=== PATIENT | female | born 1980 | race Caucasian/White ===

== ENCOUNTER 2018-06-25 02:21 | Emergency (ER) | payer MEDICAID, SELFPAY ==
[2018-06-25] VITALS (10 sets, daily range): BP systolic 97–128; BP diastolic 52–73; PULSE 68–110; RESP 11–18; TEMP 37; O2SAT 97–100; BMI 20.6
[2018-06-25] MEDS: LORazepam 2 MG/ML Syringe IM (02:50)
[2018-06-25] MEDS: Haloperidol Lactate 5 MG/ML Vial IM (02:50)
--- NOTE | 2018-06-25 03:02 | ED.RN ---
Addendum entered by Anastasiya Daniels 06/25/18 03:13: THIS PT WAS ALSO TRYING TO BREAK HER OWN WRIST AND THUMB STATING THAT SHE NEEDED TO GET THE BLACK THINGS OUT OF HER. SHE WAS ALSO CONTINUOUSLY PICKING AT HER NECK AND HER SKIN TRYING TO RIP OUT THE BAD THINGS. THIS NURSE AND MULTIPLE NURSES TRIED TO REDIRECT THE PT MULTIPLE TIMES AND LET HER KNOW WE WOULD HELP HER BUT SHE REFUSED TO LET THE NURSES DO ANYTHING TO TRY TO HELP HER. Original Note: THIS PATIENT WAS STATING THAT SHE HAS THINGS CRAWLING IN HER SKIN AND THEY ARE HURTING HER AND SHE WAS ACTING ERRATIC AND STATES SHE WANTED ANXIETY MEDS, DR GOINS EXAMINED THE PATIENT AND ORDERED HER ANXIETY MEDS, WHILE THIS NURSE WAS DRAWLING UP THE MEDS, THIS PT TOOK OFF OUT THE BACK DOORS OF THE ER, WHEN SECURITY WAS TOLD SECURITY WALKED THE OTHER WAY WHILE THE PT RAN OUT OF THE ER, THE PHARM SPEC WERE THEN CALLED AND THEY BROUGHT THIS PT BACK. THIS PATIENT WAS STILL TRYING TO LEAVE AND SO DR GOINS ORDERED RESTRAINTS BECAUSE THE PATIENT WAS STATING SHE WAS GOING TO HURT THE STAFF AND KEPT TRYING TO LEAVE SO AT THIS POINT THE PT WAS RESTRAINED AND GIVEN ATIVAN AND HALIDOL TO HELP HER CALM DOWN. THE PT IS RAMBLING ON AND STILL YELLING AT STAFF AND THREATENING THEM.
[2018-06-25 04:01] LABS: Bacteria 0 SEEN /hpf (None Seen); Mucous, Urine 0 SEEN /hpf (<or=2+)
[2018-06-25 04:02] LABS: Absolute Neutrophil Count 3.8 X10^3/uL (2.0-7.7); Basophil# 0.07 X10^3/uL; Basophil% 1.1 % (0-1); Eosinophil# 0.17 X10^3/uL; Eosinophils% 2.7 % (0-5); Hematocrit 32.8 % (37-47); Mean Corp Hgb Conc 33.5 g/gl (32-36); Mean Corpuscular Hgb 27.4 pg (27.0-32.0); Mean Corpuscular Volume 81.8 fL (81-99); Mean Platelet Vol. 9.8 fl (6.2-12.0); Monocyte# 0.36 X10^3/uL; Monocyte% 5.8 % (0-10); Neutrophil # 3.79 X10^3/uL (2.7-7.7); Neutrophil % 61.2 % (47-70); Platelet Count 348 K/mm3 (150-450); RBC Distribution Width SD 40.9 fl (35.1-43.9); Red Blood Count 4.01 M/mm3 (4.2-5.4); White Blood Count 6.2 K/mm3 (4.4-11.0)
[2018-06-25 04:12] LABS: ALB/GLOB Ratio 1.2 RATIO (0.9-2.4); AST(SGOT) 71 U/L (15-37); Alanine Aminotransfer ALT/SGPT 75 U/L (13-56); Albumin, Serum 3.9 g/dL (3.2-5.0); Alkaline Phosphatase 121 U/L (45-117); Anion Gap 12 (5-15); BUN 12 mg/dL (7-18); BUN/Creat Ratio 16.7 RATIO (10-20); Calcium,Total 8.5 mg/dL (8.5-10.1); Chloride 103 mmol/L (98-107); Creatinine, Serum 0.72 mg/dL (0.55-1.02); EST Glomerular Filtration Rate 97 mL/min (>60); Est Glom Filt Rate - Afr Amer 117 mL/min (>60); Globulin 3.2 g/dL (2.2-4.2); Glucose 86 mg/dL (74-106); Potassium 2.9 mmol/L (3.5-5.1); Protein, Total 7.1 g/dL (6.4-8.2); Sodium Level 140 mmol/L (136-145)
[2018-06-25 04:50] LABS: Alcohol, Blood (Medical)-Serum < 3.0 mg/dL
[2018-06-25 04:52] LABS: POSITIVE COUNT NO; POSITIVE DIFFERENTIAL NO; POSITIVE MORPHOLOGY NO
[2018-06-25 04:57] LABS: Color, Urine Yellow (Yellow); Ketone-Dipstick 5 mg/dl (Negative); Urine Clarity Sl Cldy (Clear)
[2018-06-25 04:58] LABS: Glucose, Dipstick NEGATIVE (Normal); Nitrite-Dipstick Negative (Negative); Occult Blood-Urine 10 /ul (Negative); Protein-Dipstick Negative (Negative); Urine Bilirubin Dipstick Negative (Negative); Urine Urobilinogen Normal (Normal)
[2018-06-25 04:59] LABS: Leukocyte Esterase-Dipstick Negative /ul (Negative); Red Blood Cells-Urine 0-5 SEEN /hpf (0-5); Squamous Epithelial Cells - UA 0-5 SEEN /hpf (5-10); White Blood Cells 0-5 SEEN /hpf (0-5)
[2018-06-25 05:06] LABS: Amphetamine Urine VISTA POSITIVE (<1000 ng/mL); Barbiturate Urine VISTA NEGATIVE (< 200 ng/mL); Benzodiazepine Urine VISTA NEGATIVE (< 200 ng/mL); Cocaine Urine VISTA NEGATIVE (< 300 ng/mL); Ecstacy Urine VISTA POSITIVE (< 500 ng/mL); Methadone Urine VISTA NEGATIVE (< 300 ng/mL); PCP Urine VISTA NEGATIVE (< 25 ng/mL); THC Urine VISTA NEGATIVE (< 50 ng/mL); Vista UDS pH Range 6
--- NOTE | 2018-06-25 05:43 | NURSING ---
CALLED CRISIS TO INFORM THEM PATIENT WAS READY TO BE SEEN
--- NOTE | 2018-06-25 06:04 | ED.VISSUMM ---
- ER Visit Summary Date of Service: 06/25/18 Chief Complaint: [Agitation and abnormal behavior] History of Present Illness: The patient is a 38 F [presents to the emergency department with police escort from home. Neighbors apparently called police to the fact that the patient was yelling out of her window. Police thought patient was having a manic episode. Patient apparently has been without her psychiatric medications. Patient was noted to have conversations with people that were not actually there per police. Patient also believes that the neighbors are shooting darts through her woods that are causing her skin to burn. Patient denies feeling suicidal or homicidal. Patient denied any illicit drug use. She denies any physical complaints.] Physical Examination: [HEENT-PERRLA, EOMI. Cranial nerves II through XII grossly intact. TMs clear. Mucous membranes moist. No adenopathy. Patient has excoriations about her forehead and face. Cardiovascular-regular rate and rhythm without murmur or ectopy Lungs-clear to auscultation, chest wall stable without crepitus or subcu emphysema Abdomen-normoactive bowel sounds, soft, nontender, no rebound or rigidity, no peritoneal signs. Extremities-intact ?4, normal range of motion, normal pulses, atraumatic] Test Results: [CBC with differential obtained showed a white count of 6.2, hemoglobin 11, hematocrit 33, platelets 348. Chemistries unremarkable other than a slightly depressed potassium of 2.9 for which I did order 40 mEq of potassium chloride p.o. LFTs did show slightly elevated ALT of 75, AST 71, and alkaline phosphatase of 121. Toxicology screen was positive for amphetamines and methamphetamines. Patient had a negative alcohol level.] Emergency Department Course and Treatment: [On initial presentation after police left patient became quite agitated that I could not see the black darts that were in her skin. Patient threatened to leave the department and did push me out of the way and walked out of the department. Police was contacted who found the patient and brought her back to the emergency department. Patient had to be physically restrained as she was quite agitated and belligerent. Patient post threat and risk to herself as well as staff. Patient initially physically restrained in four-point and was chemically restrained with 2 mg of Ativan as well as 5 mg of Haldol.] Treatment Plan: [Patient will be evaluated by crisis I feel patient will likely require inpatient management and further treatment.] Disposition: [Pending event which by crisis] Impression: [Psychosis Illicit drug use] This note was generated with [employer] dictation software. It may contain incorrect words, spelling, and punctuation that were not noted in review of the chart prior to signing ED Disposition - Plan for ED Patient: Chief Complaint: Mental Health Referrals: Reji Sood DO [Primary Care Provider] -
--- NOTE | 2018-06-25 07:17 | ED.RN ---
PT UNABLE TO VERIFY INFORMATION OR MEDS OR ALLERGIES. ATTEMPTED AGAIN THIS AM. PT WILL NOT COMMENT
[2018-06-25 07:36] LABS: Pregnancy, Serum, hCG Quali. NEGATIVE Negative (0-9 Nonpreg)
--- NOTE | 2018-06-25 07:51 | ED.RN ---
ALL RESTRAINTS REMOVED AT THIS TIME. PT RESPONSIVE. ASKS FOR BLANKET. WARM BLANKET PROVIDED.. STILL UNABLE TO GIVE POTASSIUM PT NOT AWAKE ENOUGH
--- NOTE | 2018-06-25 09:07 | ED.RN ---
[facility]
--- NOTE | 2018-06-25 09:24 | ED.RN ---
JOSE ALEJANDRO CALLED AND IS STOPPING OVER BUT HAS TO GO TO THE [facility] FIRST TO SEE A PATIENT.
--- NOTE | 2018-06-25 10:17 | ED.RN ---
PT AQWAKE ENOUGH TO TAKE POTASSIUM. PILLS GIVEN WITHOUT DIFFICULTY. OFFERRED PT FOOD AND DRINK. PT REFUSED BUT DID DRINK WATER WITH PILLS. PT POLITE AND COOPERATIVE WITH THIS RN
--- NOTE | 2018-06-25 12:17 | NURSING ---
Ju from crisis in to see patient. Pt informed her she was confused and needed to sleep longer. Ju will return around 220 today to re-evaluate.
== END 2018-06-25 17:45 ==
LOC: ED 03:46
PROVIDERS: Emergency Provider Emergency Medicine; Family Provider Family Medicine; PCP Family Medicine
DX: F29 Unspecified psychosis not due to a substance or known physiological condition (principal); F19.10 Other psychoactive substance abuse, uncomplicated
CPT/HCPCS: 80053; 80307; 80320; 81001; 84703; 85025; 96372; 99285; G0480

== ENCOUNTER 2018-07-05 01:23 | Emergency (ER) | payer MEDICAID, SELFPAY ==
[2018-06-25 02:22] VITALS: BMI 20.6
[2018-07-05 01:24] VITALS: BP 129/91; PULSE 114; RESP 22; TEMP 36.4; O2SAT 100; BMI 18.1
[2018-07-05 01:52] LABS: Absolute Lymphocyte Count 2.12 X10^3/ul (0.83-4.51); Absolute Neutrophil Count 4.3 X10^3/uL (2.0-7.7); Basophil# 0.05 X10^3/uL; Basophil% 0.7 % (0-1); Eosinophil# 0.16 X10^3/uL; Eosinophils% 2.2 % (0-5); Hematocrit 31.6 % (37-47); Hemoglobin 10.4 g/dl (12.0-15.0); Lymphocyte # 2.12 X10^3/ul (4.0); Lymphocyte % 29.7 % (19-41); Mean Corp Hgb Conc 32.9 g/gl (32-36); Mean Corpuscular Hgb 26.5 pg (27.0-32.0); Mean Corpuscular Volume 80.6 fL (81-99); Mean Platelet Vol. 8.8 fl (6.2-12.0); Monocyte# 0.53 X10^3/uL; Monocyte% 7.4 % (0-10); Neutrophil # 4.27 X10^3/uL (2.7-7.7); POSITIVE COUNT NO; POSITIVE DIFFERENTIAL NO; POSITIVE MORPHOLOGY NO; Platelet Count 397 K/mm3 (150-450); RBC Distribution Width SD 43.9 fl (35.1-43.9); Red Blood Count 3.92 M/mm3 (4.2-5.4); White Blood Count 7.1 K/mm3 (4.4-11.0)
--- NOTE | 2018-07-05 02:04 | ED.DCSUM_ITS ---
History of Present Illness Chief Complaint: Mental Health Informant: Patient, [employer] - and police Onset: Today Narrative: Please were responding to calling about the patient sounded like she was fighting with herself in her home. When they arrived, she apparently had barricaded herself with the furniture of the house, she states that there are spots on the wall and things are coming out of the carpet and she appears very nervous and paranoid and they documented that she appeared to have fake seizures without loss of consciousness, she states she was recently at [facility] and was placed on omeprazole for her seizures. She states she has not been d rinking fluids and feels dehydrated and very anxious, and she has an anxiety problem. She is not suicidal, she is very apologetic for what her throat appears like, and tearful as she tells us that it is her neighbors fault. - Past Medical History (1) ADHD (attention deficit hyperactivity disorder) Status: Chronic (2) Agoraphobia without history of panic disorder Status: Chronic (3) Asthma Status: Chronic (4) Chronic recurrent pancreatitis Status: Chronic (5) History of alcohol dependence Status: Chronic (6) History of anxiety disorder Status: Chronic (7) History of insomnia Status: Chronic (8) Opioid dependence in remission Status: Chronic Past Medical History - Allergies and Home Meds Allergies/Adverse Reactions: Allergies latex Allergy (Verified 07/05/18 02:04) Rash morphine Allergy (Verified 07/05/18 02:04) Rash Sulfa (Sulfonamide Antibiotics) Allergy (Verified 07/05/18 02:04) Swelling Primary Care Physician: Reji Sood DO [Primary Care Provider] - Surgical History: noncontributory, - - 2 c sections Smoking Status: Unknown if ever smoked - Family History Paternal Family History: Reports: No pertinent history Maternal Family History: Reports: No pertinent history Review of Systems General: Denies: Chills, Fever, Sweats Eyes: Denies: Visual changes - bilaterally, Diplopia ENT: Denies: Sore throat Cardiovascular: Denies: Chest pain, Palpitations Respiratory: Denies: Dyspnea, Cough, Dyspnea on exertion Gastrointestinal: Reports: Nausea. Denies: Abdominal pain, Vomiting, Diarrhea, Melena, Hematochezia Genitourinary: Denies: Dysuria, Hematuria, Frequency Musculoskeletal: Denies: Back pain, Swelling, Extremity Pain Skin: Reports: Rash - That is red on forearms, burning, itching Neurological: Denies: Headache, Weakness, Numbness Psych: Reports: Anxiety. Denies: Suicidal thoughts, Suicidal ideations Endocrine: Denies: Heat intolerance, Cold intolerance Hematologic: Denies: Easy bruising, Easy bleeding Allergy: Denies: Swelling of the mouth, Swelling of the tongue Physical Exam Vital Signs/Narrative: Vital Signs Temp Pulse Resp BP Pulse Ox 07/05/18 01:24 97.5 F L 114 H 22 H 129/91 H 100 Inital Vital Signs reviewed: Yes General: Well nourished, Well developed Head: Normocephalic, Atraumatic Eyes: Perrl, EOMI ENT: Moist mucous membranes, No rhinorrhea Neck: Supple, Nontender Cardiovascular: Regular rate, Regular rhythm, No murmurs Respiratory: No distress, CTA bilaterally, Chest nontender Abdomen: Soft, Nontender, Nondistended, Normal bowel sounds Back: Nontender, Normal Inspection Extremities: Nontender, No edema Skin: Normal color, Rash - Blanching nontender erythema with excoriations on both forearms, proximal edges are not well differentiated, consistent with contact dermatitis Neurological: Alert, Oriented x3, Cranial nerves II-XII grossly intact, Normal Strength, Normal Sensation Psychological: Tearful, Agitated - Mild psychomotor agitation, cooperative, staying in bed, - - Not having active hallucinations, but discussing that she was seeing things coming out of her carpet at her house. Anxious appearing. Diagnostic/Tx/Re-eval Laboratory Tests 07/05/18 07/05/18 07/05/18 Range/Units 02:47 02:47 01:45 WBC (4.4-11.0) K/mm3 RBC (4.2-5.4) M/mm3 Hgb (12.0-15.0) g/dl Hct (37-47) % MCV (81-99) fL MCH (27.0-32.0) pg MCHC (32-36) g/gl RDW (11.6-14.6) % RDW Differential (35.1-43.9) fl Plt Count (150-450) K/mm3 MPV (6.2-12.0) fl Immature Gran % (Auto) (0.0-0.9) % Neut % (Auto) (47-70) % Lymph % (Auto) (19-41) % [place] % (Auto) (0-10) % Eos % (Auto) (0-5) % Baso % (Auto) (0-1) % Absolute Neuts (auto) (2.0-7.7) X10^3/uL Absolute Lymphs (auto) (0.83-4.51) X10^3/ul Total Counted Sodium (136-145) mmol/L Potassium (3.5-5.1) mmol/L Chloride (98-107) mmol/L Carbon Dioxide (21.0-32.0) mmol/L Anion Gap (5-15) BUN (7-18) mg/dL Creatinine (0.55-1.02) mg/dL Estim Creat Clear Calc ml/min Est GFR (MDRD) Af Amer (>60) mL/min Est GFR (MDRD) Non-Af (>60) mL/min BUN/Creatinine Ratio (10-20) RATIO Glucose (74-106) mg/dL Calcium (8.5-10.1) mg/dL Total Bilirubin (0.20-1.00) mg/dL AST (15-37) U/L ALT (13-56) U/L Alkaline Phosphatase (45-117) U/L Total Protein (6.4-8.2) g/dL Albumin (3.2-5.0) g/dL Globulin (2.2-4.2) g/dL Albumin/Globulin Ratio (0.9-2.4) RATIO TSH (0.358-3.74) uIU/mL Serum , Qual NEGATIVE (0-9 Nonpreg) Negative Urine Color Yellow (Yellow) Urine Clarity Sl. Cloudy (Clear) Urine pH 5.0 (5.0 - 8.0) Ur Specific [place] 1.025 (1.002-1.030) Urine Protein 30 H (Negative) mg/dl Urine Glucose (UA) Normal (Normal) mg/dl Urine Ketones 15 H (Negative) mg/dl Urine Occult Blood Negative (Negative) /ul Urine Nitrite Negative (Negative) Urine Bilirubin Negative (Negative) mg/dL Urine Urobilinogen Normal (Normal) mg/dl Ur Leukocyte Esterase 500 H (Negative) /ul Urine RBC 0 SEEN (0-5) /hpf Urine WBC 10-25 SEEN (0-5) /hpf Ur Squamous Epith Cells 5-10 SEEN (5-10) /hpf Amorphous Sediment 1+ Urine Bacteria 0 SEEN (None Seen) /hpf Urine Mucus 0 SEEN (<or=2+) /hpf Urine Opiates Screen NEGATIVE (< 300 ng/mL) Urine Methadone Screen NEGATIVE (< 300 ng/mL) Ur Barbiturates Screen NEGATIVE (< 200 ng/mL) Ur Phencyclidine Scrn NEGATIVE (< 25 ng/mL) Ur Amphetamines Screen POSITIVE H (<1000 ng/mL) U Methamphetamin-MDMA POSITIVE H (< 500 ng/mL) U Benzodiazepines Scrn NEGATIVE (< 200 ng/mL) Urine Cocaine Screen NEGATIVE (< 300 ng/mL) U Cannabinoids Screen NEGATIVE (< 50 ng/mL) Ur Drug Screen Comment Ethyl Alcohol mg/dL 07/05/18 07/05/18 07/05/18 Range/Units 01:45 01:45 01:45 WBC 7.1 (4.4-11.0) K/mm3 RBC 3.92 L (4.2-5.4) M/mm3 Hgb 10.4 L (12.0-15.0) g/dl Hct 31.6 L (37-47) % MCV 80.6 L (81-99) fL MCH 26.5 L (27.0-32.0) pg MCHC 32.9 (32-36) g/gl RDW 15.0 H (11.6-14.6) % RDW Differential 43.9 (35.1-43.9) fl Plt Count 397 (150-450) K/mm3 MPV 8.8 (6.2-12.0) fl Immature Gran % (Auto) 0.000 (0.0-0.9) % Neut % (Auto) 60.0 (47-70) % Lymph % (Auto) 29.7 (19-41) % [place] % (Auto) 7.4 (0-10) % Eos % (Auto) 2.2 (0-5) % Baso % (Auto) 0.7 (0-1) % Absolute Neuts (auto) 4.3 (2.0-7.7) X10^3/uL Absolute Lymphs (auto) 2.12 (0.83-4.51) X10^3/ul Total Counted Not Reportable Sodium 137 (136-145) mmol/L Potassium 3.2 L (3.5-5.1) mmol/L Chloride 104 (98-107) mmol/L Carbon Dioxide 21.0 (21.0-32.0) mmol/L Anion Gap 12 (5-15) BUN 22 H (7-18) mg/dL Creatinine 0.70 (0.55-1.02) mg/dL Estim Creat Clear Calc 82.74 ml/min Est GFR (MDRD) Af Amer 120 (>60) mL/min Est GFR (MDRD) Non-Af 99 (>60) mL/min BUN/Creatinine Ratio 31.4 H (10-20) RATIO Glucose 149 H (74-106) mg/dL Calcium 8.4 L (8.5-10.1) mg/dL Total Bilirubin 1.20 H (0.20-1.00) mg/dL AST 95 H (15-37) U/L ALT 90 H (13-56) U/L Alkaline Phosphatase 167 H (45-117) U/L Total Protein 7.3 (6.4-8.2) g/dL Albumin 4.2 (3.2-5.0) g/dL Globulin 3.1 (2.2-4.2) g/dL Albumin/Globulin Ratio 1.4 (0.9-2.4) RATIO TSH 1.67 (0.358-3.74) uIU/mL Serum , Qual (0-9 Nonpreg) Negative Urine Color (Yellow) Urine Clarity (Clear) Urine pH (5.0 - 8.0) Ur Specific [place] (1.002-1.030) Urine Protein (Negative) mg/dl Urine Glucose (UA) (Normal) mg/dl Urine Ketones (Negative) mg/dl Urine Occult Blood (Negative) /ul Urine Nitrite (Negative) Urine Bilirubin (Negative) mg/dL Urine Urobilinogen (Normal) mg/dl Ur Leukocyte Esterase (Negative) /ul Urine RBC (0-5) /hpf Urine WBC (0-5) /hpf Ur Squamous Epith Cells (5-10) /hpf Amorphous Sediment Urine Bacteria (None Seen) /hpf Urine Mucus (<or=2+) /hpf Urine Opiates Screen (< 300 ng/mL) Urine Methadone Screen (< 300 ng/mL) Ur Barbiturates Screen (< 200 ng/mL) Ur Phencyclidine Scrn (< 25 ng/mL) Ur Amphetamines Screen (<1000 ng/mL) U Methamphetamin-MDMA (< 500 ng/mL) U Benzodiazepines Scrn (< 200 ng/mL) Urine Cocaine Screen (< 300 ng/mL) U Cannabinoids Screen (< 50 ng/mL) Ur Drug Screen Comment Ethyl Alcohol < 3.0 mg/dL - Medical Decision Making Labs show mild hypokalemia and a urinary tract infection. Otherwise unremarkable. Began treatment for these problems starting her on Keflex, which should be continued at 500 mg capsule 3-4 times daily x 7 days. We sent a culture of her urine. Otherwise she is medically cleared for psychiatric evaluation. Crisis evaluated her and agrees that she should be transferred to a psychiatric facility for further evaluation. I attempted to tell her that she was pink slipped, but she became more agitated and would not allow me to converse with her anymore, she was asking for her medicines which she has not had lately and when I suggested that she was not taking them, she was very adamant that she could not get to them, not that she refuses. She was given her oral medications which she took, in addition to an Ativan because she said she was getting very anxious and did not want to have an EKG, repeat vital signs, or to have me talk to her anymore. She blames it on her lack of sleep. Her th oughts are illogical at times and incoherent. ED Disposition - Plan for ED Patient: Disposition: Acute Care Hospital - Other Chief Complaint: Mental Health Diagnosis: Psychosis, Contact dermatitis, UTI (urinary tract infection) Referrals: Reji Sood DO [Primary Care Provider] -
--- NOTE | 2018-07-05 02:08 | ED.RN ---
PER DR EVIE STUART SITTER AT THIS TIME
[2018-07-05] MEDS: hydrOXYzine PAM 25 MG Capsule PO (02:13)
[2018-07-05] MEDS: proMETHazine 25 MG Tablet PO (02:13)
[2018-07-05 02:17] LABS: ALB/GLOB Ratio 1.4 RATIO (0.9-2.4); AST(SGOT) 95 U/L (15-37); Alanine Aminotransfer ALT/SGPT 90 U/L (13-56); Albumin, Serum 4.2 g/dL (3.2-5.0); Alkaline Phosphatase 167 U/L (45-117); Anion Gap 12 (5-15); BUN 22 mg/dL (7-18); BUN/Creat Ratio 31.4 RATIO (10-20); Calcium,Total 8.4 mg/dL (8.5-10.1); Chloride 104 mmol/L (98-107); EST Glomerular Filtration Rate 99 mL/min (>60); Est Glom Filt Rate - Afr Amer 120 mL/min (>60); Estimated Creatinine Clearance 82.74 ml/min; Globulin 3.1 g/dL (2.2-4.2); Glucose 149 mg/dL (74-106); Potassium 3.2 mmol/L (3.5-5.1); Protein, Total 7.3 g/dL (6.4-8.2); Sodium Level 137 mmol/L (136-145); Thyroid Stim Hormone (TSH) 1.67 uIU/mL (0.358-3.74)
[2018-07-05 02:50] LABS: Bacteria 0 SEEN /hpf (None Seen); Mucous, Urine 0 SEEN /hpf (<or=2+); Red Blood Cells-Urine 0 SEEN /hpf (0-5)
[2018-07-05 02:52] LABS: Color, Urine Yellow (Yellow); Glucose, Dipstick Normal (Normal); Ketone-Dipstick 15 mg/dl (Negative); Leukocyte Esterase-Dipstick 500 /ul (Negative); Nitrite-Dipstick Negative (Negative); Occult Blood-Urine Negative /ul (Negative); Protein-Dipstick 30 mg/dl (Negative); Specific Gravity, Urine 1.025 (1.002-1.030); Urine Bilirubin Dipstick Negative (Negative); Urine Clarity Sl. Cloudy (Clear); Urine Urobilinogen Normal (Normal)
[2018-07-05 03:03] LABS: Alcohol, Blood (Medical)-Serum < 3.0 mg/dL
[2018-07-05 03:06] LABS: Amphetamine Urine VISTA POSITIVE (<1000 ng/mL); Barbiturate Urine VISTA NEGATIVE (< 200 ng/mL); Benzodiazepine Urine VISTA NEGATIVE (< 200 ng/mL); Cocaine Urine VISTA NEGATIVE (< 300 ng/mL); Ecstacy Urine VISTA POSITIVE (< 500 ng/mL); Methadone Urine VISTA NEGATIVE (< 300 ng/mL); PCP Urine VISTA NEGATIVE (< 25 ng/mL); THC Urine VISTA NEGATIVE (< 50 ng/mL); Vista UDS pH Range 6
[2018-07-05 03:15] VITALS: RESP 14
[2018-07-05 03:27] LABS: Amorphous Sediment 1+; Squamous Epithelial Cells - UA 5-10 SEEN /hpf (5-10); White Blood Cells 10-25 SEEN /hpf (0-5)
[2018-07-05 03:36] LABS: Pregnancy, Serum, hCG Quali. NEGATIVE Negative (0-9 Nonpreg)
[2018-07-05 04:00] VITALS: RESP 20
[2018-07-05 05:00] VITALS: RESP 18
[2018-07-05 06:00] VITALS: RESP 18
--- NOTE | 2018-07-05 06:11 | ED.RN ---
THIS RN AND ED PHYSICIAN WERE IN PATIENTS ROOM DISCUSSING PATIENT PLAN OF CARE. PT REFUSES TO LET MEDICAL STAFF TAKE VITAL SIGNS AND EKG. PATIENT INCREASINGLY PARANOID QUESTIONING WHY WE HAVE TO DO A HOSPITAL GENERATOR CHECK WHEN SHE HEARD THE CHARGE NURSE TELL THIS RN THERE WOULD BE ONE. SHE STATES SHE BELIEVES WE ARE LYING TO HER. THIS RN OFFERED BEVERAGE, FOOD AND TO CALL HER MOTHER FOR MORAL SUPPORT. PATIENT REFUSED. MD TO PUT IN ORDERS FOR MEDICATION. WILL CONTINUE TO MONITOR SINCE UNABLE TO OBTAIN VITAL SIGNS AT THIS TIME.
[2018-07-05] MEDS: Benztropine 2 MG Tablet 1 MG PO (06:59)
[2018-07-05] MEDS: LORazepam 1 MG Tablet PO (06:59)
[2018-07-05] MEDS: Cephalexin 250 MG Capsule 500 MG PO (07:00)
[2018-07-05] MEDS: OLANZapine 5 MG/TAB TAB.RAPDIS 10 MG PO (07:01)
[2018-07-05] MEDS: LORazepam 2 MG/ML Syringe 1 MG IM (07:43)
--- NOTE | 2018-07-05 08:21 | ED.RN ---
pt's stepfather arrived with a pair reader glasses since he was unable to find her glasses. pt accepted those and left with squad without difficulty.
--- OUTSIDE RECORDS SUMMARY | 2018-08-28 22:16 | XMS RPT_ITS ---
:1980 Author Organization OHIP Care Team Providers Name Role Phone CHUY BROWN Referring Unavailable ELIEZER LI Primary Care Unavailable MAURICIO STOKES DO Attending Unavailable RASHEED SEQUEIRA Consulting Unavailable Dr. Bj Ridley Admitting Unavailable Dr. Bj Ridley Attending Unavailable Lizz BROWN Referring Unavailable IndigoReji Primary Care Unavailable Stephy Sullivan Attending Unavailable Indigo Reji Primary Care Unavailable FUNMI CASE Attending Unavailable PROBLEMS PROBLEMS DATE TYPE CONDITION / CODE ATTENDING STATUS SOURCE 06/29/2018 Admitting Unspecified MAURICIO STOKES [facility] Diagnosis convulsions / DO System R56.9(ICD-10) Repository 06/29/2018 Final Diagnosis Unspecified MAURICIO STOKES [facility] (Discharge) convulsions / DO System R56.9(ICD-10) Repository 06/29/2018 Final Diagnosis Anxiety disorder, MAURICIO STOKES [facility] (Discharge) unspecified / DO System F41.9(ICD-10) Repository 06/29/2018 Final Diagnosis Major depressive MAURICIO STOKES [facility] (Discharge) disorder, single DO System episode, Repository unspecified / F32.9(ICD-10) 06/29/2018 Final Diagnosis Other stimulant MAURICIO STOKES [facility] (Discharge) abuse, in remission DO System / F15.11(ICD-10) Repository 06/29/2018 Final Diagnosis Attention-deficit MAURICIO STOKES [facility] (Discharge) hyperactivity DO System disorder, Repository unspecified type / F90.9(ICD-10) 06/29/2018 Final Diagnosis Nicotine MAURICIO STOKES [facility] (Discharge) dependence, DO System cigarettes, Repository uncomplicated / F17.210(ICD-10) 06/29/2018 Final Diagnosis Iron deficiency MAURICIO STOKES [facility] (Discharge) anemia, unspecified DO System / D50.9(ICD-10) Repository 10/09/2017 Active Generalized NA Active [facility] Other R10.84(ICD-10) [place] Repository 10/09/2017 Active Abnormal weight NA Active [facility] loss / Clinic Other R63.4(ICD-10) [place] Repository 10/09/2017 Admitting Unknown / NA Active [facility] diagnosis UNK(Unknown) [facility] Repository PROCEDURES PROCEDURES No Procedure Records FoundRESULTS RESULTS HISTORY AND Observed: 07/14/2018 Status: F Source: [facility] PHYSICAL-DICTATED 1:27 PM [facility] REPOSITORY [facility] [address] [place] [address] NAME CAILIN DUMONT [facility] [id number] 1980 ADMIT 07/05/2018 HISTORY AND PHYSICAL IDENTIFYING INFORMATION Cailin Dumont is a 38-year-old, single, unemployed, female, residing in [place], [place]. HISTORY OF PRESENT ILLNESS Patient was brought to the [facility] Emergency Department as the patient was exhibiting bizarre behavior. Apparently, patient's neighbor had called the police as the patient was yelling. On arrival to the emergency department at [facility], the patient was talking nonstop, was jumping from one topic to another. The patient had admitted of hearing voices and reportedly had visual hallucinations. The patient believes that they were laughing at her and that was talking to her. Patient was yelling out her windows and was making noises. The patient had stated that the neighbors had barricaded her room at home and was making noises. The patient had verbalized delusional thoughts that people were laughing at her and that things were coming out of the wall and woods can hear her. Patient has history of previous psychiatric treatment at [facility] in [place], [place], for 2 or 3 years. The patient had been noncompliant with her medication and had been off the medication for past 1 year. Considering her deteriorating emotional states, was admitted with application for emergency admission signed by [facility] emergency department physician. PAST HISTORY Patient denied previous psychiatric hospitalization. The patient stated that she had attended [facility] in [place] and had been not taking any medication for past 1 year. FAMILY HISTORY Patient's biological father from heart attack at the age of 45. Stepfather is working in sales of furniture. Mother had retired from insurance company. Patient has 1 sister. Patient is single, never . Had been with the boyfriend for 15 years and has 2 sons age 13 and 11. Patient stated that she was drinking heavily along with her children's father and had several domestic violence charges. The patient's 2 sons are currently in the custody of patient's mother. Patient stated that boyfriend is working in [email or web address], making mats for a truck. The patient has 1 sister. SOCIAL HISTORY Patient had attended [employer] for 4 years and had obtained Associate Degree in human resources with her major in child abuse criminology. Patient has no recent work history. Patient has history of alcohol abuse. Her drug screening revealed amphetamine and methamphetamine positive. MEDICAL HISTORY Patient stated that she had been diagnosed with chronic pancreatitis 4 years ago and had undergone Whipple surgery of pancreatitis 1 and one half years ago. The patient reportedly has history of seizure disorder. MENTAL STATUS EXAMINATION Cailin Dumont is a 38-year-old thin looking, underweight, female, is looking somewhat older than stated age. Is ambulatory, alert, oriented. Appeared with sad-looking facial expression. Patient had verbalized delusional thoughts. She had verbalized feeling of anhedonia, anergia, also verbalized feeling of hopelessness, helplessness, worthlessness. Attention, concentration span poor. Memory of recent and remote events intact. Intelligence average. DIAGNOSTIC IMPRESSION 1. Psychotic disorder, depressive disorder. 2. History of mixed substance abuse. 3. Status post Whipple surgery, chronic pancreatitis, seizure disorder. PHYSICAL EXAMINATION Constitutional: Height 5 feet 4 inches, weight 107 pounds, BMI 18.37. Vital signs: Temperature 97.8, pulse 110, pressure 103/64, respirations General appearance: Cailin Dumont is 38-year-old female, ambulatory, oriented. Skin and mucous membranes: No lesions. Lymphatics: No lymphadenopathy. Skeletal and extremities: Normal range of motion. HEENT: Head: Normocephalic, atraumatic. Ears: No discharge noted. Eyes: Pupils round, equal, regular. Nose: No discharge noted. Mouth and Pharynx: Catherine mucosa. Neck: Supple. Respiratory: Clear to auscultation. Cardiovascular: Normal. Heart: Normal heart sounds. Abdomen: Soft nontender. Neurologic: Unremarkable. LABORATORY DATA Chemistry, hematology unremarkable. Drug screening revealed methamphetamine, methamphetamine positive. REVIEW OF SYSTEMS Ten systems reviewed, no significant finding. PLAN Routine lab work. SP-2 for unpredictable behavior. Patient is prescribed Zoloft 50 mg, Risperdal 0.25 mg at bedtime. Patient was explained in detail of the role of the prescribed medication, known indication, adverse effect, contraindication, alternatives to treatment. She will be seen in individual supportive therapy. She is encouraged to participate in group therapy, activities therapy. She is also encouraged to participate in substance abuse groups. MD Bee LINDA 07/06/2018 14:23 [id number] 07/06/2018 15:11 YKD/MODL Electronically Signed By Bj Ridley M.D. on 09 Jul 2018 18:51:07 GMT HISTORY AND Observed: 07/14/2018 Status: F Source: [facility] PHYSICAL-DICTATED 1:27 PM [facility] REPOSITORY [facility] [address] [place] [address] NAME CAILIN DUMONT [facility] [id number] 1980 DATE 07/14/2018 PROGRESS NOTE Patient was seen individually. Case discussed with nursing staff. Medical records were reviewed. Patient is cooperative, pleasant on approach. No suicidal or homicidal plan, intent, or thought noted. Psychomotor activities appeared within range. Patient is discharged today. She will continue followup at [facility] in [place], [place]. MD Bee LINDA 07/14/2018 13:27 [id number] 07/14/2018 19:52 YKD/MODL Electronically Signed By Bj Ridlye M.D. on 16 Jul 2018 17:22:29 GMT GLUCOSE, POC Collected: 07/12/2018 Status: F Source: [facility] 10:19 PM [facility] REPOSITORY TYPE CODE TESTS RESULT OUT OF RANGE REFERENCE UNITS LAB GLUX 70-105 mg/dL Normal Glucose, 93 POC Performed By: #### GLUX #### Unless otherwise noted, all testing performed by [place] [id number] CLIA: [id number] Case Management Associate: Wilmer Sykes M.D. AMYLASE Collected: 07/07/2018 Status: F Source: [facility] 2:32 PM [facility] REPOSITORY TYPE CODE TESTS RESULT OUT OF RANGE REFERENCE UNITS LAB NEIL 25-115 U/L Normal Amylase 73 Performed By: #### [id number], LIPASE, NEIL #### Unless otherwise noted, all testing performed by [place] [id number] CLIA: [id number] Case Management Associate: Wilmer Sykes M.D. LIPASE Collected: 07/07/2018 Status: F Source: [facility] 2:32 PM [facility] REPOSITORY TYPE CODE TESTS RESULT OUT OF RANGE REFERENCE UNITS LAB LIPASE 73-393 U/L Normal Lipase 362 Performed By: #### [id number], LIPASE, NEIL #### Unless otherwise noted, all testing performed by [place] [address] CLIA: [id number] Case Management Associate: Wilmer Sykes M.D. VITAMIN B12 AND Collected: 07/07/2018 Status: F Source: [facility] FOLATES 2:32 PM [facility] REPOSITORY TYPE CODE TESTS RESULT OUT OF RANGE REFERENCE UNITS LAB VITB12 193-986 pg/mL Normal Vitamin B12 814 LAB FOLATE 3.1-17.5 ng/mL High Folate 19.9 Performed By: #### [id number], LIPASE, NEIL #### Unless otherwise noted, all testing performed by [facility] [address] [place], [place] [address] CLIA: [id number] Case Management Associate: Wilmer Sykes M.D. EMERGENCY DEPARTMENT Observed: 07/05/2018 Status: F Source: [facility] SUMMARY 7:19 AM [facility] REPOSITORY [facility] Medical Records Department [address] [place] [address] Emergency Department Summary 07/05/18 0200 MR#: [id number] Acct: [id number] Name: CAILIN DUMONT Rep #: [id number] : 1980 38 From: Funmi Case MD PCP: Reji Sood DO Status: REG ER ADDENDUM by FUNMI CASE MD on 07/05/18 at 0719 Accepted at [facility] 07/05/18 0719 Date Funmi Case MD cc: DO Reji Sood * Signed History of Present Illness Chief Complaint: Mental Health Informant: Patient, Seating And Mobility Technologist - and police Onset: Today Narrative: Please were responding to calling about the patient sounded like she was fighting with herself in her home. When they arrived, she apparently had barricaded herself with the furniture of the house, she states that there are spots on the wall and things are coming out of the carpet and she appears very nervous and paranoid and they documented that she appeared to have fake seizures without loss of consciousness, she states she was recently at [facility] and was placed on omeprazole for her seizures. She states she has not been drinking fluids and feels dehydrated and very anxious, and she has an anxiety problem. She is not suicidal, she is very apologetic for what her throat appears like, and tearful as she tells us that it is her neighbors fault. - Past Medical History (1) ADHD (attention deficit hyperactivity disorder) Status: Chronic (2) Agoraphobia without history of panic disorder Status: Chronic (3) Asthma Status: Chronic (4) Chronic recurrent pancreatitis Status: Chronic (5) History of alcohol dependence Status: Chronic (6) History of anxiety disorder Status: Chronic (7) History of insomnia Status: Chronic (8) Opioid dependence in remission Status: Chronic Past Medical History - Allergies and Home Meds Allergies/Adverse Reactions: Allergies latex Allergy (Verified 07/05/18 02:04) Rash morphine Allergy (Verified 07/05/18 02:04) Rash Sulfa (Sulfonamide Antibiotics) Allergy (Verified 07/05/18 02:04) Swelling Primary Care Physician: Reji Sood DO [Primary Care Provider] - Surgical History: noncontributory, - - 2 c sections Smoking Status: Unknown if ever smoked - Family History Paternal Family History: Reports: No pertinent history Maternal Family History: Reports: No pertinent history Review of Systems General: Denies: Chills, Fever, Sweats Eyes: Denies: Visual changes - bilaterally, Diplopia ENT: Denies: Sore throat Cardiovascular: Denies: Chest pain, Palpitations Respiratory: Denies: Dyspnea, Cough, Dyspnea on exertion Gastrointestinal: Reports: Nausea. Denies: Abdominal pain, Vomiting, Diarrhea, Melena, Hematochezia Genitourinary: Denies: Dysuria, Hematuria, Frequency Musculoskeletal: Denies: Back pain, Swelling, Extremity Pain Skin: Reports: Rash - That is red on forearms, burning, itching Neurological: Denies: Headache, Weakness, Numbness Psych: Reports: Anxiety. Denies: Suicidal thoughts, Suicidal ideations Endocrine: Denies: Heat intolerance, Cold intolerance Hematologic: Denies: Easy bruising, Easy bleeding Allergy: Denies: Swelling of the mouth, Swelling of the tongue Physical Exam Vital Signs/Narrative: Vital Signs 07/05/18 01:24 97.5 F L 114 H 22 H 129/91 H 100 Inital Vital Signs reviewed: Yes General: Well nourished, Well developed Head: Normocephalic, Atraumatic Eyes: Perrl, EOMI ENT: Moist mucous membranes, No rhinorrhea Neck: Supple, Nontender Cardiovascular: Regular rate, Regular rhythm, No murmurs Respiratory: No distress, CTA bilaterally, Chest nontender Abdomen: Soft, Nontender, Nondistended, Normal bowel sounds Back: Nontender, Normal Inspection Extremities: Nontender, No edema Skin: Normal color, Rash - Blanching nontender erythema with excoriations on both forearms, proximal edges are not well differentiated, consistent with contact dermatitis Neurological: Alert, Oriented x3, Cranial nerves II-XII grossly intact, Normal Strength, Normal Sensation Psychological: Tearful, Agitated - Mild psychomotor agitation, cooperative, staying in bed, - - Not having active hallucinations, but discussing that she was seeing things coming out of her carpet at her house. Anxious appearing. Diagnostic/Tx/Re-eval Laboratory Tests WBC (4.4-11.0) K/mm3 RBC (4.2-5.4) M/mm3 Hgb (12.0-15.0) g/dl Hct (37-47) % MCV (81-99) fL MCH (27.0-32.0) pg - Medical Decision Making Labs show mild hypokalemia and a urinary tract infection. Otherwise unremarkable. Began treatment for these problems starting her on Keflex, which should be continued at 500 mg capsule 3-4 times daily x 7 days. We sent a culture of her urine. Otherwise she is medically cleared for psychiatric evaluation. Crisis evaluated her and agrees that she should be transferred to a psychiatric facility for further evaluation. I attempted to tell her that she was pink slipped, but she became more agitated and would not allow me to converse with her anymore, she was asking for her medicines which she has not had lately and when I suggested that she was not taking them, she was very adamant that she could not get to them, not that she refuses. She was given her oral medications which she took, in addition to an Ativan because she said she was getting very anxious and did not want to have an EKG, repeat vital signs, or to have me talk to her anymore. She blames it on her lack of sleep. Her thoughts are illogical at times and incoherent. ED Disposition - Plan for ED Patient: Disposition: Acute Care Hospital - Other Chief Complaint: Mental Health Diagnosis: Psychosis, Contact dermatitis, UTI (urinary tract infection) Referrals: Reji Sood, DO [Primary Care Provider] - What to do if you have Problems For any increased pain, shortness of breath, bleeding, nausea or vomiting, chest pain, or any unexpected problems, contact your Primary Care Provider. Call [facility] ([phone]) or report to the closest Emergency Room. Call 911 if necessary. 07/05/18 0649 <Electronically signed by Funmi Case MD> Date Funmi Case MD Cosigner Signature (If Indicated): Date CC: DO Reji Indigo URINE DRUG SCREEN Collected: 07/05/2018 Status: F Source: [facility] ([facility]) 2:47 AM [facility] REPOSITORY TYPE CODE TESTS RESULT OUT OF RANGE REFERENCE UNITS LAB L505.0075 TO BE Normal CONFIRMED Result Comment: CONFIRMATORY TESTING FOR ALL POSITIVE URINE DRUG SCREEN RESULTS WILL ONLY BE SENT OUT UPON PHYSICIAN ORDER. VISTA Urine Drug Screen methods provide only preliminary analytical test results. A more specific alternate chemical method must be used in order to obtain a confirmed analytical result. Gas chromatography/mass spectrometery (GC/MS) is the preferred confirmatory method. Clinical consideration and professional judgement should be applied to any drug of abuse test result, particularly when preliminary positive results are used. URINE TCA TESTING MUST BE ORDERED SEPARATELY. USE TEST MNEMONIC: [facility] LAB L505.5005 VISTA UDS PH 6 Normal LAB L505.5015 <1000 High ng/mL AMPHETAMINES POSITIVE LAB L505.5025 < 200 ng/mL BARBITIURATES Normal NEGATIVE LAB L505.5035 < 200 ng/mL BENZODIAZIPINE Normal NEGATIVE LAB L505.5045 < 300 ng/mL COCAINE Normal NEGATIVE LAB L505.5055 < 500 High ng/mL ECSTACY POSITIVE LAB L505.5065 < 300 ng/mL METHADONE Normal NEGATIVE LAB L505.5075 < 300 ng/mL OPIATES Normal NEGATIVE LAB L505.5085 < 25 ng/mL PCP Normal NEGATIVE LAB L505.5095 < 50 ng/mL THC Normal NEGATIVE Performed By: #### L505.5000 #### [facility] [address] [place], [address] URINALYSIS, COMPLETE Collected: 07/05/2018 Status: F Source: [facility] 2:47 AM [facility] REPOSITORY Order Comment: Order Date: 07/05/18 How was Urine Obtained? ASSISTANT PRODUCTION EDITOR TO SPECIFY TYPE CODE TESTS RESULT OUT OF RANGE REFERENCE UNITS LAB L400.3000 Yellow COLOR Normal Yellow LAB L400.3050 Clear Normal CLARITY Sl. Cloudy LAB L400.3200 Normal mg/dl Normal GLUCOSE, UR Normal LAB L400.3300 Negative mg/dL Normal BILIRUBIN URINE Negative LAB L400.3400 Negative mg/dl High 15 KETONE UR LAB L400.3465 1.002-1.030 Normal SP.GR. DIPSTX 1.025 LAB L400.3550 5.0 - 8.0 pH UR Normal 5.0 LAB L400.3600 Negative mg/dl High PROT 30 DIPSTX LAB L400.3700 Normal mg/dl Normal UROBILI Normal LAB L400.3750 Negative Normal NITRITE UR Negative LAB L400.3780 Negative /ul Normal OCCULT BLOOD-UR Negative LAB L400.3800 Negative /ul High LEUK ESTERASE 500 LAB L400.4050 0-5 /hpf WBC Normal 10-25 SEEN LAB L400.4100 0-5 /hpf 0 Normal RBC-UA SEEN LAB L400.4150 5-10 /hpf SQUAM Normal EPI 5-10 SEEN LAB L400.4300 None Seen /hpf 0 Normal BACTERIA SEEN LAB L400.4350 <or=2+ /hpf 0 Normal MUCUS, URINE SEEN LAB L400.4900 1+ Normal AMORPHOUS Performed By: #### L400.0001 #### [facility] [address] [place], [address] Observed: 07/05/2018 Status: F Source: [facility] CULTURE, URINE 2:47 AM [facility] REPOSITORY Urine Culture Culture exhibits no growth. Performed By: #### M100.0650 #### [facility] [address] [place], [address] CBC W/DIFF, AUTOMATED Collected: 07/05/2018 Status: F Source: [facility] 1:45 AM [facility] REPOSITORY TYPE CODE TESTS RESULT OUT OF RANGE REFERENCE UNITS LAB L100.1000 4.4-11.0 K/mm3 Normal WBC 7.1 LAB L100.1200 4.2-5.4 M/mm3 Low RBC 3.92 LAB L100.1300 12.0-15.0 g/dl Low HGB 10.4 LAB L100.1400 37-47 % Low HCT 31.6 LAB L100.1500 81-99 fL Low MCV 80.6 LAB L100.1600 27.0-32.0 pg Low MCH 26.5 LAB L100.1700 32-36 g/gl Normal MCHC 32.9 LAB L100.1810 11.6-14.6 % High RDW CV 15.0 LAB L100.1820 35.1-43.9 fl Normal RDW SD 43.9 LAB L100.1900 150-450 K/mm3 Normal PLT 397 LAB L100.2000 6.2-12.0 fl Normal MPV 8.8 LAB L100.2100 47-70 % Normal NEUT% 60.0 LAB L100.2200 19-41 % Normal LY% 29.7 LAB L100.2300 0-10 % Normal MONO% 7.4 LAB L100.2400 0-5 % Normal EO% 2.2 LAB L100.2500 0-1 % Normal BASO% 0.7 LAB L100.2550 0.0-0.9 % Normal IM GRAN % 0.000 Result Comment: IG% - Immature Granulocytes (promyelocytes, myelocytes and metamyelocytes) > 1% indicates that a LEFT SHIFT is Present. LAB L100.2620 2.0-7.7 X10 3/uL Normal Absolute Neut 4.3 LAB L100.2720 0.83-4.51 X10 3/ul Normal Absolute Lymph 2.12 Performed By: #### L100.0100 #### [facility] [address] [place], [place], [address] COMPREHENSIVE METABOLIC Collected: 07/05/2018 Status: F Source: [facility] CARR 1:45 AM [facility] REPOSITORY TYPE CODE TESTS RESULT OUT OF RANGE REFERENCE UNITS LAB L501.0100 74-106 mg/dL High GLU 149 Result Comment: Fasting Glucose result greater than or equal to 126 mg/dL suggests DIABETES MELLITUS per A.D.A. criteria. Please note revised GLUCOSE reference range effective 2017. LAB L501.1000 7-18 mg/dL High BUN 22 LAB L501.1100 0.55-1.02 mg/dL Normal CREAT,SERUM 0.70 Result Comment: The validity of the calculated GFR AND GFRAA in patients over 70 years has not been determined. Clinical correlation is essential. LAB L501.1110 >60 mL/min Normal EST GFR 99 Result Comment: Non- GFR Calc LAB L501.1115 >60 mL/min Normal EST GFR - AA 120 Result Comment: GFR Calc LAB L501.1255 ml/min Normal Estimated CRCL 82.74 LAB L501.1300 10-20 RATIO High BUN/CRE 31.4 LAB L501.1500 6.4-8. g/dL Normal 2 T PROT 7.3 LAB L501.1800 3.2-5. g/dL Normal 0 ALB 4.2 LAB L501.1950 2.2-4. g/dL Normal 2 GLOB 3.1 LAB L501.2000 0.9-2. RATIO Normal 4 A/G 1.4 LAB L501.2200 8.5-10 mg/dL Low .1 CA 8.4 LAB L501.4100 15-37 U/L High AST 95 LAB L501.4305 45-117 U/L High ALK P 167 LAB L501.4405 13-56 U/L High ALT 90 LAB L501.4600 0.20-1 mg/dL High .00 T BILI 1.20 LAB L501.5300 136-14 mmol/L Normal 5 NA 137 LAB L501.5600 3.5-5. mmol/L Low 1 K 3.2 LAB L501.5900 98-107 mmol/L Normal CL 104 LAB L501.6100 21.0-3 mmol/L Normal 2.0 CO2 21.0 LAB L501.6200 5-15 Normal GAP 12 Performed By: #### L500.4050, L501.9520 #### [facility] [address] [place], [address] THYROID STIM HORMONE Collected: 07/05/2018 Status: F Source: [facility] (TSH) 1:45 AM [facility] REPOSITORY TYPE CODE TESTS RESULT OUT OF RANGE REFERENCE UNITS LAB L501.9520 0.358-3.74 uIU/mL Normal TSH 1.67 Performed By: #### L500.4050, L501.9520 #### [facility] [address] [place], [address] ALCOHOL, BLOOD Collected: 07/05/2018 Status: F Source: [facility] (MEDICAL)-SERUM 1:45 AM [facility] REPOSITORY TYPE CODE TESTS RESULT OUT OF RANGE REFERENCE UNITS LAB L501.9100 mg/dL Normal SERUM < 3.0 ETOH Result Comment: The serum:whole blood ethanol ratio is approximately 1.14 and varies slightly with hematocrit. Medical Alcohol reference interval and critical value in non-tolerant individuals; 50 - 100 Impairment 100 Intoxication 100 - 250 Severe Poisoning 250 - 400 Deep/possible fatal coma Performed By: #### L501.9100 #### [facility] [address] [place], [place], [address] ,SERUM,HCG QUALI. Collected: Status: F Source: [facility] 07/05/2018 1:45 AM [facility] REPOSITORY TYPE CODE TESTS RESULT OUT OF REFERENCE UNITS RANGE LAB L700.7000 0-9 Nonpreg Negative Normal HCGSQUAL NEGATIVE LAB L700.6700 =>Qualitative mIU/mL Normal HCG Qual < 1 triggr Performed By: #### L700.6800 #### [facility] [address] [facility] [place], [place], [address] BRAIN WO CONTRAST Observed: 06/30/2018 Status: F Source: [facility] 3:29 PM SYSTEM REPOSITORY *FINAL Date of Service: 06/30/2018 15:29 Adm #: [id number] Reading Dr:CHARLIE JAY Signoff Dr: CHARLIE JAY PROCEDURE: BRAIN WO CONTRAST - WMR 2000 REASON FOR EXAM: new onset seizures RESULT: MRI BRAIN WITHOUT CONTRAST: Technique: Multiplanar T1, T2, FLAIR and diffusion-weighted images were obtained. Gradient axial images were also obtained. Thin T1 coronal FLAIR images obtained. CLINICAL HISTORY: 38 years Female new onset seizures detoxing FINDINGS: Findings: Diffusion-weighted scans show no abnormalities to suggest acute infarct. Sagittal T1 scan shows the pituitary to be normal. The cerebellar tonsils are normal in position. The upper cervical spine is normal. FLAIR images show the brainstem and cerebellar hemispheres to be normal. T2-weighted scans show normal appearance to the IACs. There is normal flow void in the basilar artery, carotid siphons, middle cerebral arteries and sagittal sinus. The para nasal sinuses show minimal right mastoid sinus disease.The orbits are normal. The ventricles is slight prominence of the atria and occipital horns. There are cavum septum pellucidum and cavum Vergae present which are anatomic variants. FLAIR and T2 images show show subtle area of linear increased FLAIR and T2 signal in the left parietal periventricular region.. Gradient images show no abnormal hemosiderin deposit. Coronal T2 weighted scans show no additional findings. The hippocampal regions and temporal lobes are symmetrical. IMPRESSION: 1. 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 2. Subtle linear area of increased FLAIR signal and T2 signal in the left parietal periventricular region of uncertain significance. The appearance is nonspecific. A follow-up study in the 3-6 months would help to document stability of this finding. 3. Cavum septum pellucidum cavum variant which are anatomic variants. 4. Minimal right mastoid sinus disease of doubtful clinical significance correlate clinically This report has been produced using speech recognition. Original Interpreting Physician: CHARLIE JAY M.D. Original Transcribed by/Date: PSCB Jun 30 2018 3:44P Original Electronically Signed by/Date: CHARLIE JAY M.D. Jun 30 2018 3:44P Addendum Interpreting Physician: Addendum Transcribed by/Date: NO ADDENDUM Addendum Electronically Signed by/Date: CBC WITHOUT DIFF Collected: 06/29/2018 Status: F Source: [facility] 5:26 AM SYSTEM REPOSITORY TYPE CODE TESTS RESULT OUT OF REFERENCE UNITS RANGE LAB WBC 4.5-11.0 K/UL WBC COUNT 5.9 LAB RBC 4.0-4.9 M/UL Low RBC COUNT 3.53 LAB HGB 12.0-15.0 GM/DL Low HEMOGLOBIN 9.5 LAB HCT 36-44 % Low HEMATOCRIT 30.1 LAB MCV 80-100 FL MCV 85.3 LAB MCH 26-34 PG MCH 26.9 LAB MCHC 31-37 % MCHC 31.6 LAB RDWS 37.0-54.0 FL RDW-SD 45.8 LAB RDWC 11.7-15.0 % RDW-CV 14.8 LAB PLT 150-450 K/UL PLATELET 284 LAB MPV 7.0-12.6 CU MEAN PLT VOL 10.1 LAB NRBC 0 NRBC'S Result Comment: 0 Performed at [address] [address] Performed By: #### CBCN #### [facility] [address] [address] BASIC METABOLIC PANEL Collected: 06/29/2018 Status: F Source: [facility] 5:26 AM SYSTEM REPOSITORY TYPE CODE TESTS RESULT OUT OF REFERENCE UNITS RANGE LAB GLU 65-99 MG/DL GLUCOSE High 110 LAB BUN 8-25 MG/DL UREA NITROGEN 17 LAB CRET 0.4-1.6 MG/DL CREATININE 0.6 LAB BUCR 8-21 RATIO High BUN/CREAT. RATIO 28.3 LAB NA 133-145 MMOL/L SODIUM 139 LAB K 3.4-5.1 MMOL/L POTASSIUM 3.8 LAB CL 97-107 MMOL/L CHLORIDE 106 LAB CO2 24-31 MMOL/L Low CARBON DIOXIDE 22 LAB ANGP 0-19 MMOL/L ANION GAP 11 LAB CA 8.5-10.4 Low TOTAL CALCIUM Result Comment: 8.4 Performed at [address] [address] Performed By: #### BMP #### [facility] [address] [address] LIPID PANEL Collected: 06/29/2018 Status: F Source: [facility] 5:26 AM SYSTEM REPOSITORY TYPE CODE TESTS RESULT OUT OF REFERENCE UNITS RANGE LAB COLR SERUM COLOR YELLOW LAB CLAR SERUM CLARITY CLEAR LAB PREP PT. PREPARATION FASTING LAB CHOL 133-200 MG/DL CHOLESTEROL Low TOTAL 125 LAB TRIG 40-150 MG/DL TRIGLYCERIDE G.B. 71 LAB HDL >50 HDL Result Comment: 65 National Cholesterol Education Program(NCFP)guidelines: <40 mg/dl:Low HDL-cholesterol(major risk factor for CHD) >60 mg/dl:High HDL-cholesterol(negativerisk factor for CHD) HDL-cholesterol is affected by a number of factors,e.g.,smoking, exercise,hormones,sex and age. LAB LDL 65-130 MG/DL LDL,CALCULATED Low 46 LAB CHDLR CHOL HDL RATIO Result Comment: 1.9 According to the [place] [employer], the goal is to maintain the total cholesterol/HDL ratio at 5-to-1 or lower with an optimum ratio of 3.5-to-1. Performed at [place] [address] Performed By: #### LIPD #### [facility] [address] [address] MAGNESIUM Collected: 06/29/2018 Status: F Source: [facility] 5:26 AM SYSTEM REPOSITORY TYPE CODE TESTS RESULT OUT OF REFERENCE UNITS RANGE LAB MG 1.6-3.1 MAGNESIUM Result Comment: 1.8 Performed at [place] [address] Performed By: #### MG #### [address] [address] PHOSPHORUS Collected: 06/29/2018 Status: F Source: [facility] 5:26 AM SYSTEM REPOSITORY TYPE CODE TESTS RESULT OUT OF REFERENCE UNITS RANGE LAB PHOS 2.5-4.5 PHOSPHORUS Result Comment: 3.5 Performed at [address] [address] Performed By: #### PHOS #### [place] [address] B12 Collected: 06/29/2018 Status: F Source: [facility] 5:26 AM SYSTEM REPOSITORY TYPE CODE TESTS RESULT OUT OF RANGE REFERENCE UNITS LAB VB12 211-946 VIT. B12 Result Comment: 745 Deficient=<174 pg/ml Xsulhvrndirzm=032-353 pg/ml Performed at [place] [address] Performed By: #### B12 #### [place] [id number] FOLIC ACID Collected: 06/29/2018 Status: F Source: [facility] 5:26 AM SYSTEM REPOSITORY TYPE CODE TESTS RESULT OUT OF RANGE REFERENCE UNITS LAB FOLI 4.2-19.9 FOLIC ACID Result Comment: 15.9 Deficient=<2.1 ng/ml Indeterminate=2.2-4.1 ng/ml Performed at [place] [id number] Performed By: #### FA #### [facility] [address] [address] PROLACTIN Collected: 06/29/2018 Status: F Source: [facility] 5:26 AM SYSTEM REPOSITORY TYPE CODE TESTS RESULT OUT OF REFERENCE UNITS RANGE LAB PROL 4.8-23.3 High PROLACTIN Result Comment: 81.5 Performed at [address] [address] Performed By: #### PRLC #### [facility] [address] [address] IRON PANEL Collected: 06/29/2018 Status: F Source: [facility] 5:26 AM SYSTEM REPOSITORY TYPE CODE TESTS RESULT OUT OF REFERENCE UNITS RANGE LAB IRON 30-160 UG/DL Low IRON 22 LAB TIBC 228-428 MCG/DL TOT.IRON BIND.CAP. 286 LAB SAT 12-50 Low TRANSFERRIN % SAT. Result Comment: 7.7 Performed at [address] [address] Performed By: #### IP #### [facility] [address] [address] BRAIN WO CONTRAST Observed: 06/28/2018 Status: F Source: [facility] 10:50 PM SYSTEM REPOSITORY *FINAL Date of Service: 06/28/2018 22:50 Adm #: [id number] Reading Dr:KRISTIAN DAVID Signoff Dr: KRISTIAN DAVID PROCEDURE: BRAIN WO CONTRAST - WCT 3000 REASON FOR EXAM: new onset seizures RESULT: BRAIN WO CONTRAST: 06/28/2018 10:50 PM CLINICAL INDICATION: New onset of seizures. 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 COMPARISON: No comparison exams available. TECHNIQUE: CT axial images through the Brain were obtained without contrast. PATIENT RADIATION EXPOSURE DATA: CTDI mGy: 52.30 mGy,52.30 mGy DLP mGy/cm: 1368 mGycm FINDINGS: There is no mass effect, hemorrhage, or infarct. Tamayo-white differentiation is maintained. Cavum septum pellucidum noted. Body and atria of the lateral ventricles appear enlarged probably a developmental variant The visualized paranasal sinuses appear clear. IMPRESSION: Negative noncontrast CT of the brain This report has been produced using speech recognition. This exam is available in DICOM format to non-affiliated healthcare facilities on a secure media free searchable basis with prior patient authorization. The patient exposure is reported to a radiation dose index registry. All CT examinations are performed with one or more of the following dose reduction techniques: Automated Exposure Control, Adjustment of mA and/or KV according to patient size, or use of iterative reconstruction techniques. Original Interpreting Physician: KRISTIAN DAVID MD Original Transcribed by/Date: PSCB Jun 28 2018 10:53P Original Electronically Signed by/Date: KRISTIAN DAVID MD Jun 28 2018 10:53P Addendum Interpreting Physician: Addendum Transcribed by/Date: NO ADDENDUM Addendum Electronically Signed by/Date: UA-REFLEX TO CULTURE Collected: 06/28/2018 Status: F Source: [facility] 10:37 PM SYSTEM REPOSITORY TYPE CODE TESTS RESULT OUT OF REFERENCE UNITS RANGE LAB UCOL URINE COLOR YELLOW LAB [facility] URINE CLARITY CLEAR LAB USG 1.005-1.030 SP GRAV,URINE 1.030 LAB UPH 4.6-8.0 PH,URINE 7.0 LAB ULEU NEG LEUK NEGATIVE LAB UNIT NEG NIT NEGATIVE LAB UPR NEG mg/dL PROT NEGATIVE LAB UGLU NEG mg/dL GLUC NEGATIVE LAB UKET NEG KET NEGATIVE LAB UURO 0-1.0 MG/DL URO NORMAL LAB UBIL NEG BILI NEGATIVE LAB UBLD NEG BLOOD NEGATIVE LAB UCLT URINE CULTURE Result Comment: CULTURE NOT INDICATED Performed at [address] [address] LAB TR1 MICROSCOPIC AUTOMATIC MICROSCOPIC URINES LAB UWBC 0-3 /HPF WBC 1 LAB URBC 0-3 /HPF RBC 1 LAB BACT BACT NEGATIVE LAB USQEP /HPF URINE SQUAMOUS NONE SEEN EPI LAB UHYAL /LPF URINE HYALINE NONE SEEN CAST Performed By: #### UACUL #### [facility] [address] [address] URINE DRUG SCREEN Collected: 06/28/2018 Status: F Source: [facility] 10:37 PM SYSTEM REPOSITORY TYPE CODE TESTS RESULT OUT OF REFERENCE UNITS RANGE LAB THCQ THC/CANNABINOIDS NEGATIVE LAB MTDQ METHADONE NEGATIVE LAB COCQ COCAINE METABOLITES NEGATIVE LAB BNZQ BENZODIAZEPINE NEGATIVE LAB PCPQ PCP NEGATIVE LAB OPIQ OPIATE NEGATIVE LAB AMPQ AMPHETAMINE/ECSTASY NEGATIVE LAB BRBQ BARBITURATE NEGATIVE LAB OXYQ OXYCODONE Result Comment: NEGATIVE Performed at [address] [address] LAB DCMT COMMENT Result Comment: These Toxicological Screening Tests provide unconfirmed qualitative measurements to aid in treatment and diagnosis in cases of drug use or overdose. This test is used only for medical purposes. A positive result does not indicate or measure intoxication. For specific test performance or pathologist consultation, please contact the Laboratory. The following threshold concentrations are used for these analyses. Values at or above the threshold concentration are reported as Positive. Values below the threshold are reported as negative. Drug Screening Threshold THC/CANNABINOIDS 50 ng/ml METHADONE 300 ng/ml COCAINE METABOLITES 300 ng/ml BENZODIAZEPINE 300 ng/ml PCP 25 ng/ml OPIATE 300 ng/ml AMPHETAMINE/ECSTASY 1000 ng/ml BARBITURATE 200 ng/ml OXYCODONE 100 ng/ml Performed By: #### UDS #### [facility] [address] [place] [address] EKG Observed: 06/28/2018 Status: F Source: [facility] 10:20 PM SYSTEM REPOSITORY EKG Ventricular Rate : 136 BPM Atrial Rate : 136 BPM P-R Interval : 120 ms QRS Duration : 76 ms Q-T Interval : 268 ms QTC Calculation(Bezet) : 403 ms Calculated P Tofte : 79 degrees Calculated R Tofte : 74 degrees Calculated T Tofte : 64 degrees Diagnosis:Sinus tachycardia T wave abnormality, consider inferior ischemia T wave abnormality, consider anterior ischemia Abnormal ECG No previous ECGs available Confirmed by MARTY DEGROOT ([id number]) on 06/29/2018 1:37:11 PM CBC WITH DIFF Collected: 06/28/2018 Status: F Source: [facility] 10:05 PM SYSTEM REPOSITORY TYPE CODE TESTS RESULT OUT OF REFERENCE UNITS RANGE LAB DTYP DIFF TYPE AUTO DIFF LAB IMGP 0.0-1.0 % IMMATURE NEUT % 0.30 LAB NEUT 50-70 % NEUTROPHIL 58.10 LAB LYPH 20-40 % LYMPHOCYTE 33.50 LAB MONO 0-8 % MONOCYTE 5.90 LAB EOS 0-3 % EOSINOPHIL 1.60 LAB BASO 0-1 % BASOPHIL 0.60 LAB AIMG 0.0-0.1 K/UL AB IMMATURE NEUT 0.02 LAB AGRA 1.8-7.7 K/UL ABS NEUTROPHILS 3.74 LAB ALYM 1.2-3.2 K/UL ABS LYMPH 2.16 LAB TESHA 0-0.8 K/UL ABS MONOCYTE 0.38 LAB AEOS 0-0.45 K/UL ABS EOS 0.10 LAB ABAS 0.00-0.22 K/UL ABS BASO 0.04 LAB WBC 4.5-11.0 K/UL WBC COUNT 6.4 LAB RBC 4.0-4.9 M/UL Low RBC COUNT 3.81 LAB HGB 12.0-15.0 GM/DL Low HEMOGLOBIN 10.5 LAB HCT 36-44 % Low HEMATOCRIT 31.9 LAB MCV 80-100 FL MCV 83.7 LAB MCH 26-34 PG MCH 27.6 LAB MCHC 31-37 % MCHC 32.9 LAB RDWS 37.0-54.0 FL RDW-SD 45.1 LAB RDWC 11.7-15.0 % RDW-CV 14.8 LAB PLT 150-450 K/UL PLATELET 302 LAB MPV 7.0-12.6 CU MEAN PLT VOL 9.8 LAB NRBC 0 /100 WBC NRBC'S 0 LAB ANC ABS.NEUT.CALCULAT ED Result Comment: 3.74 Performed at [address] [address] Performed By: #### CBCD #### [facility] [address] [address] PROTHROMBIN TIME Collected: 06/28/2018 Status: F Source: [facility] 10:05 PM SYSTEM REPOSITORY TYPE CODE TESTS RESULT OUT OF REFERENCE UNITS RANGE LAB ANCG ANTICOAGULANT INFORMATION NOT REPORTED TO LABORATORY LAB PT 9.3-12.7 SEC PROTIME 10.4 LAB INR 0.86-1.16 INR Result Comment: 0.9 INR Theraputic Range: 2.0-3.5 Performed at [address] [address] Performed By: #### PTB #### [facility] [address] [address] COMPREHENSIVE METABOLIC Collected: 06/28/2018 Status: F Source: [facility] 10:05 PM SYSTEM REPOSITORY TYPE CODE TESTS RESULT OUT OF REFERENCE UNITS RANGE LAB CA 8.5-10.4 MG/DL TOTAL CALCIUM 9.1 LAB AST 5-40 U/L AST 13 LAB ALKP 35-125 U/L ALK PHOSPHATASE 76 LAB TBIL 0.1-1.2 MG/DL BILIRUBIN,TOTAL 0.3 LAB TP 5.9-7.9 G/DL PROTEIN, TOTAL 6.3 LAB ALB 3.5-5.0 GM/DL ALBUMIN 3.8 LAB GLOB 1.9-3.7 G/DL GLOBULIN 2.5 LAB AGR 1.5-3.0 RATIO A/G RATIO 1.5 LAB NA 133-145 MMOL/L SODIUM 139 LAB K 3.4-5.1 MMOL/L POTASSIUM 3.9 LAB CL 97-107 MMOL/L CHLORIDE 100 LAB CO2 24-31 MMOL/L CARBON DIOXIDE 25 LAB ANGP 0-19 MMOL/L ANION GAP 14 LAB BUN 8-25 MG/DL UREA NITROGEN 19 LAB CRET 0.4-1.6 MG/DL CREATININE 0.6 LAB BUCR 8-21 RATIO BUN/CREAT. High RATIO 31.7 LAB GLU 65-99 MG/DL GLUCOSE High 145 LAB ALT 5-40 U/L ALT 19 LAB EGFR ESTIMATED GFR Result Comment: 119 GFR ml/min/1.73m2 Stage ----- 90 1 60-89 2 30-59 3 15-29 4 <15 5 For -Americans, multiply EGFR result by 1.210 Calculation not validated for patients under 18 years of age. Performed at [place] [address] Performed By: #### CPMP #### [facility] [place] [address] ALCOHOL (ETHYL) Collected: 06/28/2018 Status: F Source: [facility] 10:05 PM SYSTEM REPOSITORY TYPE CODE TESTS RESULT OUT OF REFERENCE UNITS RANGE LAB ETOH 0-0.010 ALCOHOL (ETHYL) Result Comment: <0.010 Performed at [place] [address] Performed By: #### ETOH #### [facility] [place] [id number] LIPASE PS Collected: 06/28/2018 Status: F Source: [facility] 10:05 PM SYSTEM REPOSITORY TYPE CODE TESTS RESULT OUT OF REFERENCE UNITS RANGE LAB LIPS 16-63 High LIPASE PS Result Comment: 99 Performed at [address] [address] Performed By: #### LIPS #### [facility] [address] [address] MAGNESIUM Collected: 06/28/2018 Status: F Source: [facility] 10:05 PM SYSTEM REPOSITORY TYPE CODE TESTS RESULT OUT OF REFERENCE UNITS RANGE LAB MG 1.6-3.1 MAGNESIUM Result Comment: 1.6 Performed at [address] [address] Performed By: #### MG #### [facility] [address] [address] PROLACTIN Collected: 06/28/2018 Status: F Source: [facility] 10:05 PM SYSTEM REPOSITORY TYPE CODE TESTS RESULT OUT OF REFERENCE UNITS RANGE LAB PROL 4.8-23.3 High PROLACTIN Result Comment: 80.1 Performed at [address] [address] Performed By: #### PRLC #### [facility] [address] [address] HCG QUALITATIVE Collected: 06/28/2018 Status: F Source: [facility] 10:05 PM SYSTEM REPOSITORY TYPE CODE TESTS RESULT OUT OF REFERENCE UNITS RANGE LAB PREG NEG HCG QUALITATIVE Result Comment: NEGATIVE Performed at [place] [address] Performed By: #### PREG #### [facility] [address] [address] CREATINE KINASE Collected: 06/28/2018 Status: F Source: [facility] 10:05 PM SYSTEM REPOSITORY TYPE CODE TESTS RESULT OUT OF REFERENCE UNITS RANGE LAB CK 24-195 CREATINE KINASE Result Comment: 97 Performed at [place] [address] Performed By: #### CK #### [facility] [address] [address] EMERGENCY DEPARTMENT Observed: 06/25/2018 Status: F Source: [facility] SUMMARY 6:09 AM [facility] REPOSITORY [facility] Medical Records Department [address] [place] [address] Emergency Department Summary 06/25/18 0604 MR#: [id number] Acct: [id number] Name: CAILIN DUMONT Rep #: [id number] : 1980 38 From: Stephy Sullivan DO PCP: Reji Sood DO Status: REG ER - ER Visit Summary Date of Service: 06/25/18 Chief Complaint: [Agitation and abnormal behavior] History of Present Illness: The patient is a 38 F [presents to the emergency department with police escort from home. Neighbors apparently called police to the fact that the patient was yelling out of her window. Police thought patient was having a manic episode. Patient apparently has been without her psychiatric medications. Patient was noted to have conversations with people that were not actually there per police. Patient also believes that the neighbors are shooting darts through her woods that are causing her skin to burn. Patient denies feeling suicidal or homicidal. Patient denied any illicit drug use. She denies any physical complaints.] Physical Examination: [HEENT-PERRLA, EOMI. Cranial nerves II through XII grossly intact. TMs clear. Mucous membranes moist. No adenopathy. Patient has excoriations about her forehead and face. Cardiovascular-regular rate and rhythm without murmur or ectopy Lungs-clear to auscultation, chest wall stable without crepitus or subcu emphysema Abdomen-normoactive bowel sounds, soft, nontender, no rebound or rigidity, no peritoneal signs. Extremities-intact 4, normal range of motion, normal pulses, atraumatic] Test Results: [CBC with differential obtained showed a white count of 6.2, hemoglobin 11, hematocrit 33, platelets 348. Chemistries unremarkable other than a slightly depressed potassium of 2.9 for which I did order 40 mEq of potassium chloride p.o. LFTs did show slightly elevated ALT of 75, AST 71, and alkaline phosphatase of 121. Toxicology screen was positive for amphetamines and methamphetamines. Patient had a negative alcohol level.] Emergency Department Course and Treatment: [On initial presentation after police left patient became quite agitated that I could not see the black darts that were in her skin. Patient threatened to leave the department and did push me out of the way and walked out of the department. Police was contacted who found the patient and brought her back to the emergency department. Patient had to be physically restrained as she was quite agitated and belligerent. Patient post threat and risk to herself as well as staff. 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 It may contain incorrect words, spelling, and punctuation that were not noted in review of the chart prior to signing ED Disposition - Plan for ED Patient: Chief Complaint: Mental Health Referrals: Reji Sood, [Primary Care Provider] - What to do if you have Problems For any increased pain, shortness of breath, bleeding, nausea or vomiting, chest pain, or any unexpected problems, contact your Primary Care Provider. Call [facility] ([phone]) or report to the closest Emergency Room. Call 911 if necessary. 06/25/18 0609 <Electronically signed by Stephy Sullivan DO> Date Stephy Sullivan DO Cosigner Signature (If Indicated): Date CC: DO Reji Sood URINE DRUG SCREEN Collected: 06/25/2018 Status: F Source: [facility] ([facility]) 3:55 AM [facility] REPOSITORY TYPE CODE TESTS RESULT OUT OF RANGE REFERENCE UNITS LAB L505.0075 TO BE Normal CONFIRMED Result Comment: CONFIRMATORY TESTING FOR ALL POSITIVE URINE DRUG SCREEN RESULTS WILL ONLY BE SENT OUT UPON PHYSICIAN ORDER. VISTA Urine Drug Screen methods provide only preliminary analytical test results. A more specific alternate chemical method must be used in order to obtain a confirmed analytical result. Gas chromatography/mass spectrometery (GC/MS) is the preferred confirmatory method. Clinical consideration and professional judgement should be applied to any drug of abuse test result, particularly when preliminary positive results are used. URINE TCA TESTING MUST BE ORDERED SEPARATELY. USE TEST MNEMONIC: [facility] LAB L505.5005 VISTA UDS PH 6 Normal LAB L505.5015 <1000 High ng/mL AMPHETAMINES POSITIVE LAB L505.5025 < 200 ng/mL BARBITIURATES Normal NEGATIVE LAB L505.5035 < 200 ng/mL BENZODIAZIPINE Normal NEGATIVE LAB L505.5045 < 300 ng/mL COCAINE Normal NEGATIVE LAB L505.5055 < 500 High ng/mL ECSTACY POSITIVE LAB L505.5065 < 300 ng/mL METHADONE Normal NEGATIVE LAB L505.5075 < 300 ng/mL OPIATES Normal NEGATIVE LAB L505.5085 < 25 ng/mL PCP Normal NEGATIVE LAB L505.5095 < 50 ng/mL THC Normal NEGATIVE Performed By: #### L505.5000 #### [facility] [address] [place], [place], [address] URINALYSIS, COMPLETE Collected: 06/25/2018 Status: F Source: [facility] 3:55 AM [facility] REPOSITORY Order Comment: Order Date: 06/25/18 Has pt arrived? Y How was Urine Obtained? ASSISTANT PRODUCTION EDITOR TO SPECIFY TYPE CODE TESTS RESULT OUT OF RANGE REFERENCE UNITS LAB L400.3000 Yellow COLOR Normal Yellow LAB L400.3050 Clear Sl Normal CLARITY Cldy LAB L400.3200 Normal mg/dl Normal GLUCOSE, UR NEGATIVE LAB L400.3300 Negative mg/dL Normal BILIRUBIN URINE Negative LAB L400.3400 Negative mg/dl High 5 KETONE UR LAB L400.3465 1.002-1.030 Normal SP.GR. DIPSTX 1.020 LAB L400.3550 5.0 - 8.0 pH UR Normal 6.0 LAB L400.3600 Negative mg/dl PROT Normal DIPSTX Negative LAB L400.3700 Normal mg/dl Normal UROBILI Normal LAB L400.3750 Negative Normal NITRITE UR Negative LAB L400.3780 Negative /ul High 10 OCCULT BLOOD-UR LAB L400.3800 Negative /ul LEUK Normal ESTERASE Negative LAB L400.4050 0-5 /hpf WBC Normal 0-5 SEEN LAB L400.4100 0-5 /hpf Normal RBC-UA 0-5 SEEN LAB L400.4150 5-10 /hpf SQUAM Normal EPI 0-5 SEEN LAB L400.4300 None Seen /hpf 0 Normal BACTERIA SEEN LAB L400.4350 <or=2+ /hpf 0 Normal MUCUS, URINE SEEN Performed By: #### L400.0001 #### [facility] [address] [place], [place], [address] COMPREHENSIVE METABOLIC Collected: 06/25/2018 Status: F Source: [facility] C[facility] 3:40 AM [facility] REPOSITORY TYPE CODE TESTS RESULT OUT OF RANGE REFERENCE UNITS LAB L501.0100 74-106 mg/dL Normal GLU 86 Result Comment: Please note revised GLUCOSE reference range effective 2017. LAB L501.1000 7-18 mg/dL Normal BUN 12 LAB L501.1100 0.55-1.02 mg/dL Normal CREAT,SERUM 0.72 Result Comment: The validity of the calculated GFR AND GFRAA in patients over 70 years has not been determined. Clinical correlation is essential. LAB L501.1110 >60 mL/min Normal EST GFR 97 Result Comment: Non- GFR Calc LAB L501.1115 >60 mL/min Normal EST GFR - AA 117 Result Comment: GFR Calc LAB L501.1255 ml/min Normal Estimated CRCL 76.10 LAB L501.1300 10-20 RATIO Normal BUN/CRE 16.7 LAB L501.1500 6.4-8. g/dL Normal 2 T PROT 7.1 LAB L501.1800 3.2-5. g/dL Normal 0 ALB 3.9 LAB L501.1950 2.2-4. g/dL Normal 2 GLOB 3.2 LAB L501.2000 0.9-2. RATIO Normal 4 A/G 1.2 LAB L501.2200 8.5-10 mg/dL Normal .1 CA 8.5 LAB L501.4100 15-37 U/L High AST 71 LAB L501.4305 45-117 U/L High ALK P 121 LAB L501.4405 13-56 U/L High ALT 75 LAB L501.4600 0.20-1 mg/dL Normal .00 T BILI 1.00 LAB L501.5300 136-14 mmol/L Normal 5 NA 140 LAB L501.5600 3.5-5. mmol/L Low 1 K 2.9 LAB L501.5900 98-107 mmol/L Normal CL 103 LAB L501.6100 21.0-3 mmol/L Normal 2.0 CO2 25.0 LAB L501.6200 5-15 Normal GAP 12 Performed By: #### L500.4050 #### [facility] [address] [place], [place], [address] ALCOHOL, BLOOD Collected: 06/25/2018 Status: F Source: [facility] (MEDICAL)-SERUM 3:40 AM [facility] REPOSITORY TYPE CODE TESTS RESULT OUT OF RANGE REFERENCE UNITS LAB L501.9100 mg/dL Normal SERUM < 3.0 ETOH Result Comment: The serum:whole blood ethanol ratio is approximately 1.14 and varies slightly with hematocrit. Medical Alcohol reference interval and critical value in non-tolerant individuals; 50 - 100 Impairment 100 Intoxication 100 - 250 Severe Poisoning 250 - 400 Deep/possible fatal coma Performed By: #### L501.9100 #### [facility] [address] [place], [place], [address] CBC W/DIFF, AUTOMATED Collected: 06/25/2018 Status: F Source: [place] 3:40 AM [facility] REPOSITORY TYPE CODE TESTS RESULT OUT OF RANGE REFERENCE UNITS LAB L100.1000 4.4-11.0 K/mm3 Normal WBC 6.2 LAB L100.1200 4.2-5.4 M/mm3 Low RBC 4.01 LAB L100.1300 12.0-15.0 g/dl Low HGB 11.0 LAB L100.1400 37-47 % Low HCT 32.8 LAB L100.1500 81-99 fL Normal MCV 81.8 LAB L100.1600 27.0-32.0 pg Normal MCH 27.4 LAB L100.1700 32-36 g/gl Normal MCHC 33.5 LAB L100.1810 11.6-14.6 % Normal RDW CV 14.0 LAB L100.1820 35.1-43.9 fl Normal RDW SD 40.9 LAB L100.1900 150-450 K/mm3 Normal PLT 348 LAB L100.2000 6.2-12.0 fl Normal MPV 9.8 LAB L100.2100 47-70 % Normal NEUT% 61.2 LAB L100.2200 19-41 % Normal LY% 29.0 LAB L100.2300 0-10 % Normal MONO% 5.8 LAB L100.2400 0-5 % Normal EO% 2.7 LAB L100.2500 0-1 % High BASO% 1.1 LAB L100.2550 0.0-0.9 % Normal IM GRAN % 0.200 Result Comment: IG% - Immature Granulocytes (promyelocytes, myelocytes and metamyelocytes) > 1% indicates that a LEFT SHIFT is Present. LAB L100.2620 2.0-7.7 X10 3/uL Normal Absolute Neut 3.8 LAB L100.2720 0.83-4.51 X10 3/ul Normal Absolute Lymph 1.80 Performed By: #### L100.0100 #### [facility] [address] [place], [address] ,SERUM,HCG QUALI. Collected: Status: F Source: [place] 06/25/2018 3:40 AM [facility] REPOSITORY TYPE CODE TESTS RESULT OUT OF REFERENCE UNITS RANGE LAB L700.6700 =>Qualitative mIU/mL Normal HCG Qual < 1 triggr LAB L700.7000 0-9 Nonpreg Negative Normal HCGSQUAL NEGATIVE Performed By: #### L700.6800 #### [facility] [address] [place], [place], [address] PROGRESS Observed: 01/14/2018 Status: COMPLETED Source: [place] 10:39 AM [facility] REPOSITORY HNO ID: [id number] Author: Jeanette Garzon Service: (none) Author Type: Physician Bus Person Dishwasher Type: Progress Notes Filed: 01/14/2018 3:34 PM Note Text: 01/14/2018 No chief complaint on file. SUBJECTIVE: This is a 38 year old that is here today for Complaint(s) of ithcy on body and scalp x 1 month. She was seen and tx for possible scabies infestation in September. She has noticed some red bumps on her arms and legs, but they do have a white head and they leave a small scar when they resolve. She also c/o white things/bugs coming out of her hair and concerend about some hair loss. Very itchy overall. PAST MEDICAL HISTORY Diagnosis Date - Opiate addiction (HCC) - Pancreatitis - Suicidal attempted 01/2010 - Unspecified asthma(493.90) ALLERGIES Sulfa (Sulfonamide Antibiotics); Latex; Morphine; Vicodin [Hydrocodone-Acetaminophen] MEDICATIONS Current Outpatient Prescriptions: hydrOXYzine HCl (ATARAX) 25 mg tablet Take 1 tablet by mouth every 4 hours as needed. naproxen (NAPROSYN) 500 mg tablet Take 500 mg by mouth twice daily with meals. esomeprazole (NEXIUM) 40 mg capsule Take 1 capsule by mouth once daily. metoclopramide HCl (REGLAN) 5 mg tablet Take 1 tablet by mouth three times daily. acetaminophen (TYLENOL) 325 mg tablet Take 2 tablets by mouth every 6 hours as needed for Pain. Naproxen Sodium (ANAPROX DS) 550 mg tablet Take 1 tablet by mouth twice daily as needed. eqpgba-gbmosecp-smqlowl (CREON 36) 36,000-114,000- 180,000 unit capsule Take 2 caps by mouth 3 times daily with meals and 1 cap with each snack. Take 1st cap before meal starts and the 2nd cap snf through. potassium chloride ER (KLOR-CON M20) 20 mEq tablet Take 20 mEq by mouth twice daily. Cetirizine (ZYRTEC) 10 mg cap Take 10 mg by mouth once daily. albuterol HFA (PROVENTIL HFA, VENTOLIN HFA) 90 mcg/actuation inhaler Inhale 2 Puffs as instructed every 4 hours as needed for Wheezing/Shortness of Breath. therapeutic multivitamin w/ iron (THERAGRAN-M) 9 mg iron-400 mcg tablet Take 1 tablet by mouth once daily. dextroamphetamine-amphetamine (ADDERALL) 20 mg tablet Take 1 tablet by mouth once daily. LORazepam (ATIVAN) 1 mg tablet Take 1 tablet by mouth three times daily as needed for Anxiety. Food Supplement, Lactose-Free (OSMOLITE 1.2 LEONID) liqd Take 237 mL by mouth three times daily with meals. foqwqrcdhmERUYI-qmgffh-pladhrbzy (BMX 1:1:1) 1:1:1 liqd Take 5 mL by mouth every 4 hours as needed (throat pain). pregabalin (LYRICA) 100 mg capsule Take 1 capsule by mouth three times daily. traZODone (DESYREL) 50 mg tablet Take 50 mg by mouth at bedtime as needed for Sedation. clonazePAM (KLONOPIN) 0.5 mg tablet Take 0.5 mg by mouth twice daily. No current facility-administered medications for this visit. SOCIAL HISTORY Social History Marital status: Spouse name: Years of education: Number of children: 2 Social History Main Topics Smoking status: Former Smoker Packs/day: 0.00 Years: 0.00 Types: Cigarettes Smokeless tobacco: Never Used Comment: 03/09/12-pt reports has not smoked for one month Alcohol use: No Drug use: No Comment: quit illicit drugs ~2006, on Suboxone through 2009. Sexual activity: Yes Partners with: Male Social History Narrative from . 2 children. REVIEW OF SYSTEMS All other reviewed and negative other than HPI. OBJECTIVE: BP 130/88 Pulse 108 Temp 36.6 ?C (97.9 ?F) (Left Tympanic) Resp 18 Wt 48.5 kg (107 lb) BMI 17.81 kg/m? APPEARANCE Well appearing, alert, in no acute distress, well-hydrated, well nourished. SKIN Skin color, texture, turgor normal, no suspicious rashes or lesions. Few hyperpigmented, macular, small annular areas scattered on UE ABE and LE ABE consistent with scarred boil or folliculitis. No obvious burrowing or rash. SCALP minimal dandruff noted. No nits, mites, or louse identified. No areas of alopecia noted. ASSESSMENT/PLAN: 1. Itching - ICD9: 698.9, ICD10: L29.9 Advise f/u with dermatology-already has an appointment Patient reassurance No evidence of bed bug bites, lice, or scabies at this time Reviewed red flags and when to seek care sooner. Has hydroxyzine at home as needed. cerve. Reviewed red flags and when to seek care sooner. The patient indicates understanding of these issues and agrees with the plan. HCRISTIAN Shoemaker Observed: 01/14/2018 Status: COMPLETED Source: [place] 10:30 AM [facility] REPOSITORY [facility] CAILIN DUMONT ([id number]) 1980 F Date Time Provider Department 01/14/18 10:30 AM JEANETTE GARZON) [facility] During your visit today, we recorded the following information about you: Temperature Pulse Respiration Blood pressure 97.9 degrees 108/minute 18/minute 130/88 Weight 48.5 kg Jeanette Garzon PA-C 01/14/2018 3:34 PM Signed 01/14/2018 No chief complaint on file. SUBJECTIVE: This is a 38 year old that is here today for Complaint(s) of ithcy on body and scalp x 1 month. She was seen and tx for possible scabies infestation in September. She has noticed some red bumps on her arms and legs, but they do have a white head and they leave a small scar when they resolve. She also c/o white things/bugs coming out of her hair and concerend about some hair loss. Very itchy overall. PAST MEDICAL HISTORY Diagnosis Date - Opiate addiction (HCC) - Pancreatitis - Suicidal attempted 01/2010 - Unspecified asthma(493.90) ALLERGIES Sulfa (Sulfonamide Antibiotics); Latex; Morphine; Vicodin [Hydrocodone-Acetaminophen] MEDICATIONS Current Outpatient Prescriptions: hydrOXYzine HCl (ATARAX) 25 mg tablet Take 1 tablet by mouth every 4 hours as needed. naproxen (NAPROSYN) 500 mg tablet Take 500 mg by mouth twice daily with meals. esomeprazole (NEXIUM) 40 mg capsule Take 1 capsule by mouth once daily. metoclopramide HCl (REGLAN) 5 mg tablet Take 1 tablet by mouth three times daily. acetaminophen (TYLENOL) 325 mg tablet Take 2 tablets by mouth every 6 hours as needed for Pain. Naproxen Sodium (ANAPROX DS) 550 mg tablet Take 1 tablet by mouth twice daily as needed. ambowe-yywcjzhj-thcirun (CREON 36) 36,000-114,000- 180,000 unit capsule Take 2 caps by mouth 3 times daily with meals and 1 cap with each snack. Take 1st cap before meal starts and the 2nd cap snf through. potassium chloride ER (KLOR-CON M20) 20 mEq tablet Take 20 mEq by mouth twice daily. Cetirizine (ZYRTEC) 10 mg cap Take 10 mg by mouth once daily. albuterol HFA (PROVENTIL HFA, VENTOLIN HFA) 90 mcg/actuation inhaler Inhale 2 Puffs as instructed every 4 hours as needed for Wheezing/Shortness of Breath. therapeutic multivitamin w/ iron (THERAGRAN-M) 9 mg iron-400 mcg tablet Take 1 tablet by mouth once daily. dextroamphetamine-amphetamine (ADDERALL) 20 mg tablet Take 1 tablet by mouth once daily. LORazepam (ATIVAN) 1 mg tablet Take 1 tablet by mouth three times daily as needed for Anxiety. Food Supplement, Lactose-Free (OSMOLITE 1.2 LEONID) liqd Take 237 mL by mouth three times daily with meals. knhxnshpitXEGZB-pfvcqr-mrxlfwhan (BMX 1:1:1) 1:1:1 liqd Take 5 mL by mouth every 4 hours as needed (throat pain). pregabalin (LYRICA) 100 mg capsule Take 1 capsule by mouth three times daily. traZODone (DESYREL) 50 mg tablet Take 50 mg by mouth at bedtime as needed for Sedation. clonazePAM (KLONOPIN) 0.5 mg tablet Take 0.5 mg by mouth twice daily. No current facility-administered medications for this visit. SOCIAL HISTORY Social History Marital status: Spouse name: Years of education: Number of children: 2 Social History Main Topics Smoking status: Former Smoker Packs/day: 0.00 Years: 0.00 Types: Cigarettes Smokeless tobacco: Never Used Comment: 03/09/12-pt reports has not smoked for one month Alcohol use: No Drug use: No Comment: quit illicit drugs ~2006, on Suboxone through 2009. Sexual activity: Yes Partners with: Male Social History Narrative from . 2 children. REVIEW OF SYSTEMS All other reviewed and negative other than HPI. OBJECTIVE: BP 130/88 Pulse 108 Temp 36.6 ?C (97.9 ?F) (Left Tympanic) Resp 18 Wt 48.5 kg (107 lb) BMI 17.81 kg/m? APPEARANCE Well appearing, alert, in no acute distress, well- hydrated, well nourished. SKIN Skin color, texture, turgor normal, no suspicious rashes or lesions. Few hyperpigmented, macular, small annular areas scattered on UE ABE and LE ABE consistent with scarred boil or folliculitis. No obvious burrowing or rash. SCALP minimal dandruff noted. No nits, mites, or louse identified. No areas of alopecia noted. ASSESSMENT/PLAN: 1. Itching - ICD9: 698.9, ICD10: L29.9 Advise f/u with dermatology-already has an appointment Patient reassurance No evidence of bed bug bites, lice, or scabies at this time Reviewed red flags and when to seek care sooner. Has hydroxyzine at home as needed. cerve. Reviewed red flags and when to seek care sooner. The patient indicates understanding of these issues and agrees with the plan. Jeanette Garzon PA-C Referring Provider: SELF [[id number]] Allergies As of Date: 01/14/2018 Noted Allergy Reaction SULFA (SULFONAMIDE ANTIBIOTICS) 09/25/2010 4 - Hives LATEX 01/15/2007 MORPHINE 08/06/2012 7 - Swelling VICODIN (HYDROCODONE-ACETAMINOPHE*02/26/2013 11 - Vomiting Date Reviewed: 01/14/2018 Reviewed by: Shira Mcduffie Ma - Fully Assessed Primary Visit Diagnosis:Itching [L29.9] Prescriptions as of 01/14/2018 Sig: HYDROXYZINE HCL 25 MG TABLET Take 1 tablet by mouth every * NAPROXEN 500 MG TABLET Take 500 mg by mouth twice da* ESOMEPRAZOLE MAGNESIUM 40 MG * Take 1 capsule by mouth once * METOCLOPRAMIDE 5 MG TABLET Take 1 tablet by mouth three * ACETAMINOPHEN 325 MG TABLET Take 2 tablets by mouth every* NAPROXEN SODIUM 550 MG TABLET Take 1 tablet by mouth twice * SVIGEX-MEDPUJDC-HLKTGND 36,00* Take 2 caps by mouth 3 times * POTASSIUM CHLORIDE ER 20 MEQ * Take 20 mEq by mouth twice da* CETIRIZINE 10 MG CAPSULE Take 10 mg by mouth once ilana* ALBUTEROL SULFATE HFA 90 MCG/* Inhale 2 Puffs as instructed * MULTIVITAMIN-IRON 9 MG-FOLIC * Take 1 tablet by mouth once d* DEXTROAMPHETAMINE-AMPHETAMINE* Take 1 tablet by mouth once d* LORAZEPAM 1 MG TABLET Take 1 tablet by mouth three * FOOD SUPPLEMENT, LACTOSE-REDU* Take 237 mL by mouth three ti* VNYDEKKZVWSNRGY-TCHHDWT-FYESE* Take 5 mL by mouth every 4 ho* PREGABALIN 100 MG CAPSULE Take 1 capsule by mouth three* TRAZODONE 50 MG TABLET Take 50 mg by mouth at bedtim* CLONAZEPAM 0.5 MG TABLET Take 0.5 mg by mouth twice da* Problem List As Of Date 01/14/2018 Noted Resolved Depression [F32.9] INVALID FOR* Anxiety [F41.9] INVALID FOR* More... ADHD (Attention Deficit Hyperactivity Disorder)*INVALID FOR* Opiate addiction [F11.20] INVALID FOR* Neuralgia, neuritis, and radiculitis, unspecifi*INVALID FOR* Backache, unspecified [M54.9] INVALID FOR* Chronic pancreatitis (HCC) [K86.1] INVALID FOR* Family history of malignant neoplasm of breast *INVALID FOR* Acute on chronic pancreatitis (HCC) [K85.90, K8*INVALID FOR* Malnutrition of moderate degree (HCC) [E44.0] INVALID FOR* More... Encounter Status:Closed by JEANETTE GARZON PA-C on 01/14/18 PROGRESS Observed: 10/07/2017 Status: COMPLETED Source: [place] 12:46 PM [facility] [place] REPOSITORY HNO ID: [id number] Author: Hallie Way) Bettye Service: (none) Author Type: Nurse Practitioner Type: Progress Notes Filed: 10/07/2017 1:07 PM Note Text: Subjective HPI Cailin Dumont is a 37 year old female who presents with complaint of her skin itching and seeing bugs that crawl out of her scalp and out of her skin. She states they start as an irridescent colored mite that grows larger as it comes out of her skin. She sees these usually when she gets her hair wet and then a large number of bugs crawl off of her scalp. She was seen here 09/17 and prescribed permethrin which she states she used as directed. She states she did not get better after this treatment. She is concerned she may have an internal parasite, as she also has seen worms in her stool recently. She denies travel outside of the [place] in the last year. She has a history of opiate addiction but denies current drug use. Review of Systems Constitutional: Negative. Negative for chills and fever. Respiratory: Negative. Negative for cough. Cardiovascular: Negative. Negative for chest pain. Musculoskeletal: Negative. Negative for myalgias. Psychiatric/Behavioral: The patient is nervous/anxious. BP 122/72 Pulse 74 Temp 36.9 ?C (98.4 ?F) (Tympanic) Resp 16 Wt 52.6 kg (116 lb) BMI 19.3 kg/m2 PAST MEDICAL HISTORY Diagnosis Date - Opiate addiction (HCC) - Pancreatitis - Suicidal attempted 01/2010 - Unspecified asthma(493.90) PAST SURGICAL HISTORY Procedure Laterality Date - DELIVERY ONLY , low cervical - DENTAL SURGERY PROCEDURE 04/19/2014 - LIGATE FALLOPIAN TUBE Tubal ligation ALLERGIES Sulfa (Sulfonamide Antibiotics); Latex; Morphine; Vicodin [Hydrocodone-Acetaminophen] MEDICATIONS naproxen (NAPROSYN) 500 mg tablet Take 500 mg by mouth twice daily with meals. esomeprazole (NEXIUM) 40 mg capsule Take 1 capsule by mouth once daily. metoclopramide HCl (REGLAN) 5 mg tablet Take 1 tablet by mouth three times daily. acetaminophen (TYLENOL) 325 mg tablet Take 2 tablets by mouth every 6 hours as needed for Pain. Naproxen Sodium (ANAPROX DS) 550 mg tablet Take 1 tablet by mouth twice daily as needed. qseqaf-bieitvop-fivmbxa (CREON 36) 36,000-114,000- 180,000 unit capsule Take 2 caps by mouth 3 times daily with meals and 1 cap with each snack. Take 1st cap before meal starts and the 2nd cap snf through. potassium chloride ER (KLOR-CON M20) 20 mEq tablet Take 20 mEq by mouth twice daily. Cetirizine (ZYRTEC) 10 mg cap Take 10 mg by mouth once daily. albuterol HFA (PROVENTIL HFA, VENTOLIN HFA) 90 mcg/actuation inhaler Inhale 2 Puffs as instructed every 4 hours as needed for Wheezing/Shortness of Breath. therapeutic multivitamin w/ iron (THERAGRAN-M) 9 mg iron-400 mcg tablet Take 1 tablet by mouth once daily. hydrOXYzine HCl (ATARAX) 25 mg tablet Take 1 tablet by mouth every 4 hours as needed. dextroamphetamine-amphetamine (ADDERALL) 20 mg tablet Take 1 tablet by mouth once daily. LORazepam (ATIVAN) 1 mg tablet Take 1 tablet by mouth three times daily as needed for Anxiety. Food Supplement, Lactose-Free (OSMOLITE 1.2 LEONID) liqd Take 237 mL by mouth three times daily with meals. iblzjkhehqBNXQN-hmbltc-ltnfapayf (BMX 1:1:1) 1:1:1 liqd Take 5 mL by mouth every 4 hours as needed (throat pain). pregabalin (LYRICA) 100 mg capsule Take 1 capsule by mouth three times daily. traZODone (DESYREL) 50 mg tablet Take 50 mg by mouth at bedtime as needed for Sedation. clonazePAM (KLONOPIN) 0.5 mg tablet Take 0.5 mg by mouth twice daily. FAMILY HISTORY Problem Relation Age of Onset - Asthma Sister - Breast Cancer Maternal Grandmother - Cancer Maternal Grandfather - Heart Father at 45 yrs old - Diabetes Paternal Grandmother - Diabetes Paternal Grandfather - Alzheimer's Disease Paternal Grandmother - Lipids Father - Thyroid Maternal Grandmother - Psychiatry Mother depression - Psychiatry Sister depression - Breast Cancer Sister Social History Substance Use Topics - Smoking status: Former Smoker Types: Cigarettes - Smokeless tobacco: Never Used Comment: 03/09/12-pt reports has not smoked for one month - Alcohol use No Objective Physical Exam Constitutional: She is well-developed, well-nourished, and in no distress. HENT: Head: Normocephalic. Eyes: Conjunctivae are normal. Right eye exhibits no discharge. Left eye exhibits no discharge. Neck: Neck supple. Cardiovascular: Normal rate, regular rhythm and normal heart sounds. Pulmonary/Chest: Effort normal and breath sounds normal. No respiratory distress. Lymphadenopathy: She has no cervical adenopathy. Neurological: She is alert. Skin: Skin is warm and dry. There is erythema. Nursing note and vitals reviewed. ASSESSMENT/PLAN: 1. Worms in stool - ICD9: 128.9, ICD10: B83.9 (primary diagnosis) - OVA + PARA MICROSCOPIC 2. Itching - ICD9: 698.9, ICD10: L29.9 - CONSULT TO DERMATOLOGY- skin scraping needed to exclude any dermatologic cause. - HYDROXYZINE 25 MG TABLET - Follow-up with your PCP in 3-5 days if symptoms have not improved or sooner if symptoms worsen - Discussed red flags and need for immediate medical evaluation if any occur. - Discussed supportive care treatment with fluids, rest and analgesia. - Discussed expected course of illness Hallie Monreal CNP CNOV Observed: 10/07/2017 Status: COMPLETED Source: [place] 12:30 PM [facility] REPOSITORY Office Visit ([facility]) CAILIN DUMONT ([id number]) 1980 F Date Time Provider Department 10/07/17 12:30 PM HALLIE MONREAL (DIPAK) [facility] During your visit today, we recorded the following information about you: Temperature Pulse Respiration Blood pressure 98.4 degrees 74/minute 16/minute 122/72 Weight 52.6 kg Hallie Monreal CNP 10/07/2017 1:07 PM Signed Subjective HPI Cailin Dumont is a 37 year old female who presents with complaint of her skin itching and seeing bugs that crawl out of her scalp and out of her skin. She states they start as an irridescent colored mite that grows larger as it comes out of her skin. She sees these usually when she gets her hair wet and then a large number of bugs crawl off of her scalp. She was seen here 09/17 and prescribed permethrin which she states she used as directed. She states she did not get better after this treatment. She is concerned she may have an internal parasite, as she also has seen worms in her stool recently. She denies travel outside of the [place] in the last year. She has a history of opiate addiction but denies current drug use. Review of Systems Constitutional: Negative. Negative for chills and fever. Respiratory: Negative. Negative for cough. Cardiovascular: Negative. Negative for chest pain. Musculoskeletal: Negative. Negative for myalgias. Psychiatric/Behavioral: The patient is nervous/anxious. BP 122/72 Pulse 74 Temp 36.9 ?C (98.4 ?F) (Tympanic) Resp 16 Wt 52.6 kg (116 lb) BMI 19.3 kg/m2 PAST MEDICAL HISTORY Diagnosis Date - Opiate addiction (HCC) - Pancreatitis - Suicidal attempted 01/2010 - Unspecified asthma(493.90) PAST SURGICAL HISTORY Procedure Laterality Date - DELIVERY ONLY , low cervical - DENTAL SURGERY PROCEDURE 04/19/2014 - LIGATE FALLOPIAN TUBE Tubal ligation ALLERGIES Sulfa (Sulfonamide Antibiotics); Latex; Morphine; Vicodin [Hydrocodone-Acetaminophen] MEDICATIONS naproxen (NAPROSYN) 500 mg tablet Take 500 mg by mouth twice daily with meals. esomeprazole (NEXIUM) 40 mg capsule Take 1 capsule by mouth once daily. metoclopramide HCl (REGLAN) 5 mg tablet Take 1 tablet by mouth three times daily. acetaminophen (TYLENOL) 325 mg tablet Take 2 tablets by mouth every 6 hours as needed for Pain. Naproxen Sodium (ANAPROX DS) 550 mg tablet Take 1 tablet by mouth twice daily as needed. jwvufb-mgxrlvpm-yqbrpbo (CREON 36) 36,000-114,000- 180,000 unit capsule Take 2 caps by mouth 3 times daily with meals and 1 cap with each snack. Take 1st cap before meal starts and the 2nd cap snf through. potassium chloride ER (KLOR-CON M20) 20 mEq tablet Take 20 mEq by mouth twice daily. Cetirizine (ZYRTEC) 10 mg cap Take 10 mg by mouth once daily. albuterol HFA (PROVENTIL HFA, VENTOLIN HFA) 90 mcg/actuation inhaler Inhale 2 Puffs as instructed every 4 hours as needed for Wheezing/Shortness of Breath. therapeutic multivitamin w/ iron (THERAGRAN-M) 9 mg iron-400 mcg tablet Take 1 tablet by mouth once daily. hydrOXYzine HCl (ATARAX) 25 mg tablet Take 1 tablet by mouth every 4 hours as needed. dextroamphetamine-amphetamine (ADDERALL) 20 mg tablet Take 1 tablet by mouth once daily. LORazepam (ATIVAN) 1 mg tablet Take 1 tablet by mouth three times daily as needed for Anxiety. Food Supplement, Lactose-Free (OSMOLITE 1.2 LEONID) liqd Take 237 mL by mouth three times daily with meals. ysqqdsqezfRZGDT-hkxnpw-ewntmltiw (BMX 1:1:1) 1:1:1 liqd Take 5 mL by mouth every 4 hours as needed (throat pain). pregabalin (LYRICA) 100 mg capsule Take 1 capsule by mouth three times daily. traZODone (DESYREL) 50 mg tablet Take 50 mg by mouth at bedtime as needed for Sedation. clonazePAM (KLONOPIN) 0.5 mg tablet Take 0.5 mg by mouth twice daily. FAMILY HISTORY Problem Relation Age of Onset - Asthma Sister - Breast Cancer Maternal Grandmother - Cancer Maternal Grandfather - Heart Father at 45 yrs old - Diabetes Paternal Grandmother - Diabetes Paternal Grandfather - Alzheimer's Disease Paternal Grandmother - Lipids Father - Thyroid Maternal Grandmother - Psychiatry Mother depression - Psychiatry Sister depression - Breast Cancer Sister Social History Substance Use Topics - Smoking status: Former Smoker Types: Cigarettes - Smokeless tobacco: Never Used Comment: 03/09/12-pt reports has not smoked for one month - Alcohol use No Objective Physical Exam Constitutional: She is well-developed, well-nourished, and in no distress. HENT: Head: Normocephalic. Eyes: Conjunctivae are normal. Right eye exhibits no discharge. Left eye exhibits no discharge. Neck: Neck supple. Cardiovascular: Normal rate, regular rhythm and normal heart sounds. Pulmonary/Chest: Effort normal and breath sounds normal. No respiratory distress. Lymphadenopathy: She has no cervical adenopathy. Neurological: She is alert. Skin: Skin is warm and dry. There is erythema. Nursing note and vitals reviewed. ASSESSMENT/PLAN: 1. Worms in stool - ICD9: 128.9, ICD10: B83.9 (primary diagnosis) - OVA + PARA MICROSCOPIC 2. Itching - ICD9: 698.9, ICD10: L29.9 - CONSULT TO DERMATOLOGY- skin scraping needed to exclude any dermatologic cause. - HYDROXYZINE 25 MG TABLET - Follow-up with your PCP in 3-5 days if symptoms have not improved or sooner if symptoms worsen - Discussed red flags and need for immediate medical evaluation if any occur. - Discussed supportive care treatment with fluids, rest and analgesia. - Discussed expected course of illness DIPAK Vivar CNP 10/07/2017 12:56 PM Signed [facility]- Dr. [address] [facility], [address] [place], [place] [address] P: [phone] F: [phone]? Hours vary - call for assistance ? Go to lab for stool testing supplies. Referring Provider: SELF [[id number]] Allergies As of Date: 10/07/2017 Noted Allergy Reaction SULFA (SULFONAMIDE ANTIBIOTICS) 09/25/2010 4 - Hives LATEX 01/15/2007 MORPHINE 08/06/2012 7 - Swelling VICODIN (HYDROCODONE-ACETAMINOPHE*02/26/2013 11 - Vomiting Date Reviewed: 10/07/2017 Reviewed by: Hallie ([facility]) Bettye - Fully Assessed Reason for Visit: Derm Problem [33] Cmt: itching rash dx with scabies before all over, treated for scabies on 09/17, did clear up but scalp did not clear up Diarrhea [35] Cmt: indigestion x 09/17 Reason For Visit History Recorded Primary Visit Diagnosis:Worms in stool [B83.9] Other Visit Diagnosis:Itching [L29.9] Order(s):OVA + PARA MICROSCOPIC [SQOVAP] Order #: [id number] CONSULT TO DERMATOLOGY [9006] Order #: [id number]: 1 hydrOXYzine HCl (ATARAX) 25 mg tabletTake 1 tablet by mouth every 4 hours as needed.Disp: 30 tabletRfl: 0 Prescriptions as of 10/07/2017 Sig: NAPROXEN 500 MG TABLET Take 500 mg by mouth twice da* ESOMEPRAZOLE MAGNESIUM 40 MG * Take 1 capsule by mouth once * METOCLOPRAMIDE 5 MG TABLET Take 1 tablet by mouth three * ACETAMINOPHEN 325 MG TABLET Take 2 tablets by mouth every* NAPROXEN SODIUM 550 MG TABLET Take 1 tablet by mouth twice * XYWTBT-PNQUQPGJ-ZKNHLGK 36,00* Take 2 caps by mouth 3 times * POTASSIUM CHLORIDE ER 20 MEQ * Take 20 mEq by mouth twice da* CETIRIZINE 10 MG CAPSULE Take 10 mg by mouth once ilana* ALBUTEROL SULFATE HFA 90 MCG/* Inhale 2 Puffs as instructed * MULTIVITAMIN-IRON 9 MG-FOLIC * Take 1 tablet by mouth once d* HYDROXYZINE HCL 25 MG TABLET Take 1 tablet by mouth every * DEXTROAMPHETAMINE-AMPHETAMINE* Take 1 tablet by mouth once d* LORAZEPAM 1 MG TABLET Take 1 tablet by mouth three * FOOD SUPPLEMENT, LACTOSE-REDU* Take 237 mL by mouth three ti* ZNVWUPPLUNMEMES-FITJOSA-EKQKD* Take 5 mL by mouth every 4 ho* PREGABALIN 100 MG CAPSULE Take 1 capsule by mouth three* TRAZODONE 50 MG TABLET Take 50 mg by mouth at bedtim* CLONAZEPAM 0.5 MG TABLET Take 0.5 mg by mouth twice da* Medication notes this encounter DEXTROAMPHETAMINE-AMPHETAMINE 20 MG TABLET >> Za Jarrell Ma 10/07/2017 12:31 PM >> ZA JARRELL MA Oct 07, 2017 12:31 PM out of medication PREGABALIN 100 MG CAPSULE >> Za Jarrell Ma 10/07/2017 12:32 PM >> ZA JARRELL MA Oct 07, 2017 12:32 PM done TRAZODONE 50 MG TABLET >> Za Jarrell Ma 10/07/2017 12:32 PM >> ZA JARRELL MA Oct 07, 2017 12:32 PM out of medication Problem List As Of Date 10/07/2017 Noted Resolved Depression [F32.9] INVALID FOR* Anxiety [F41.9] INVALID FOR* More... ADHD (Attention Deficit Hyperactivity Disorder)*INVALID FOR* Opiate addiction [F11.20] INVALID FOR* Neuralgia, neuritis, and radiculitis, unspecifi*INVALID FOR* Backache, unspecified [M54.9] INVALID FOR* Chronic pancreatitis (HCC) [K86.1] INVALID FOR* Family history of malignant neoplasm of breast *INVALID FOR* Acute on chronic pancreatitis (HCC) [K85.90, K8*INVALID FOR* Malnutrition of moderate degree (HCC) [E44.0] INVALID FOR* More... Other instructions from your clinician: [facility]- Dr. Kellogg [address] [facility], [address] [place], [place] [address] P: [phone] F: [phone]? Hours vary - call for assistance ? Go to lab for stool testing supplies. Prescriptions ordered this encounter Disp Refills Start End HYDROXYZINE HCL 25 MG TABLET 30 t* 0 10/07/2017 Route: ORAL Sig: Take 1 tablet by mouth every 4 hours as needed. Medications Discontinued During This Encounter traMADol (ULTRAM) 50 mg tablet 10/07/2017 Class: Historical Med Route: ORAL Sig: Take 50 mg by mouth every 6 hours as needed. Disc: Reason for discontinue is not on file. lidocaine (LIDODERM) 5 % 5 Pa* 0 10/11/2016 10/07/2017 Route: TRANSDERMAL Sig: Apply 1 Patch as directed every 24 hours. Disc: Reason for discontinue is not on file. diphenhydrAMINE (BENADRYL) 25 mg tab* 30 t* 0 09/17/2017 10/07/2017 Route: ORAL Sig: Take 1 tablet by mouth every 6 hours as needed. Disc: Reason for discontinue is not on file. Encounter Status:Closed by HALLIE MONREAL on 10/07/17 PROGRESS Observed: 09/17/2017 Status: COMPLETED Source: [place] 11:41 AM [facility] REPOSITORY HNO ID: [id number] Author: Arabella Freeman Service: (none) Author Type: Nurse Practitioner Type: Progress Notes Filed: 09/17/2017 12:22 PM Note Text: HPI Patient is a 37 year old female here today for a 2 week history of rash. States she thinks she can see mites burrowing in her skin. States she woke this morning with her left eye swollen. No medications have been taken. Nothing makes it better or worse. No other concerns at this time. Review of Systems Respiratory: Negative. Cardiovascular: Negative. Skin: Positive for itching and rash. Endo/Heme/Allergies: Negative for environmental allergies. All other systems reviewed and are negative. PAST MEDICAL HISTORY Diagnosis Date - Opiate addiction (HCC) - Pancreatitis - Suicidal attempted 01/2010 - Unspecified asthma(493.90) PAST SURGICAL HISTORY Procedure Laterality Date - DELIVERY ONLY , low cervical - DENTAL SURGERY PROCEDURE 04/19/2014 - LIGATE FALLOPIAN TUBE Tubal ligation ALLERGIES Sulfa (Sulfonamide Antibiotics); Latex; Morphine; Vicodin [Hydrocodone-Acetaminophen] MEDICATIONS naproxen (NAPROSYN) 500 mg tablet Take 500 mg by mouth twice daily with meals. esomeprazole (NEXIUM) 40 mg capsule Take 1 capsule by mouth once daily. metoclopramide HCl (REGLAN) 5 mg tablet Take 1 tablet by mouth three times daily. dextroamphetamine-amphetamine (ADDERALL) 20 mg tablet Take 1 tablet by mouth once daily. acetaminophen (TYLENOL) 325 mg tablet Take 2 tablets by mouth every 6 hours as needed for Pain. Naproxen Sodium (ANAPROX DS) 550 mg tablet Take 1 tablet by mouth twice daily as needed. pregabalin (LYRICA) 100 mg capsule Take 1 capsule by mouth three times daily. qcbrpc-rxzwmcfu-bedmvoq (CREON 36) 36,000-114,000- 180,000 unit capsule Take 2 caps by mouth 3 times daily with meals and 1 cap with each snack. Take 1st cap before meal starts and the 2nd cap snf through. potassium chloride ER (KLOR-CON M20) 20 mEq tablet Take 20 mEq by mouth twice daily. traZODone (DESYREL) 50 mg tablet Take 50 mg by mouth at bedtime as needed for Sedation. Cetirizine (ZYRTEC) 10 mg cap Take 10 mg by mouth once daily. albuterol HFA (PROVENTIL HFA, VENTOLIN HFA) 90 mcg/actuation inhaler Inhale 2 Puffs as instructed every 4 hours as needed for Wheezing/Shortness of Breath. therapeutic multivitamin w/ iron (THERAGRAN-M) 9 mg iron-400 mcg tablet Take 1 tablet by mouth once daily. diphenhydrAMINE (BENADRYL) 25 mg tablet Take 1 tablet by mouth every 6 hours as needed. permethrin (ELIMITE) 5 % cream Apply 1 application to affected area one time only for 1 dose. massage into skin from neck to feet, leave on 8-12hrs, wash off; Info: repeat 2wks if live mites persist. Itching may persist after effective treatment. traMADol (ULTRAM) 50 mg tablet Take 50 mg by mouth every 6 hours as needed. lidocaine (LIDODERM) 5 % Apply 1 Patch as directed every 24 hours. LORazepam (ATIVAN) 1 mg tablet Take 1 tablet by mouth three times daily as needed for Anxiety. Food Supplement, Lactose-Free (OSMOLITE 1.2 LEONID) liqd Take 237 mL by mouth three times daily with meals. khoymcybvaINIHZ-hphoff-worpolswl (BMX 1:1:1) 1:1:1 liqd Take 5 mL by mouth every 4 hours as needed (throat pain). clonazePAM (KLONOPIN) 0.5 mg tablet Take 0.5 mg by mouth twice daily. FAMILY HISTORY Problem Relation Age of Onset - Asthma Sister - Breast Cancer Maternal Grandmother - Cancer Maternal Grandfather - Heart Father at 45 yrs old - Diabetes Paternal Grandmother - Diabetes Paternal Grandfather - Alzheimer's Disease Paternal Grandmother - Lipids Father - Thyroid Maternal Grandmother - Psychiatry Mother depression - Psychiatry Sister depression - Breast Cancer Sister Social History Substance Use Topics - Smoking status: Former Smoker Types: Cigarettes - Smokeless tobacco: Never Used Comment: 03/09/12-pt reports has not smoked for one month - Alcohol use No BP 100/62 Pulse 100 Temp 36.1 ?C (97 ?F) (Tympanic) Resp 16 Wt 53.1 kg (117 lb) BMI 19.47 kg/m2 Physical Exam Constitutional: She is oriented to person, place, and time and well-developed, well-nourished, and in no distress. Vital signs are normal. HENT: Head: Normocephalic and atraumatic. Right Ear: External ear normal. Left Ear: External ear normal. Eye structure is WINL Eyes: Pupils are equal, round, and reactive to light. Left eye exhibits no chemosis, no discharge, no exudate and no hordeolum. No foreign body present in the left eye. Left conjunctiva is not injected. Left conjunctiva has no hemorrhage. No scleral icterus. Left eye exhibits normal extraocular motion and no nystagmus. Pupils are equal. Cardiovascular: Normal rate. Pulmonary/Chest: Effort normal. Neurological: She is oriented to person, place, and time. Skin: Skin is warm and dry. Rash noted. She is not diaphoretic. Skin: Catherine, warm, dry, good turgor, bright red papules, linear and crusting 2-3 mm diameter rash on head, face, neck, chest, back, shoulders, abdomen, wrists, ankles and flexural areas of thighs and hand and toe webbing. Nursing note and vitals reviewed. ASSESSMENT/PLAN: 1. Scabies - ICD9: 133.0, ICD10: B86 (primary diagnosis) - Apply Elimite neck down after shower over night. Wash off in a.m. Repeat in 1 week times one. - Exposed, but asymptomatic individuals should be treated only once. - Itching and bumps may continue for some weeks even though the mite has been removed. Patient can use OTC Hydrocortisone and oral benadryl to itchy areas. - Wash all clothes and put shoes and items that can not be washed in a sealed bag for 3 days. - Follow up with PCP if no improvement in 3-4 weeks after treatment. - Patient should treat Ferret for mange (advised to call her vet) - DIPHENHYDRAMINE 25 MG TABLET - PERMETHRIN 5 % TOPICAL CREAM 2. Swelling of left upper eyelid - ICD9: 374.82, ICD10: H02.844 - Feel related to scratching the face - Benadryl Q6 hours - Red flag symptoms discussed Prescription instructions reviewed with patient as applicable. Patient advised if symptoms do not improve or if symptoms worsen sooner, to contact their primary care physician. Potential red flag symptoms discussed with the patient. Reviewed appropriate action plan to take if red flag symptoms occur. Patient agreeable to treatment plan. Arabella Freeman CNP ALLERGIES ALLERGIES DATE TYPE / CODE NAME / CODE REACTION SEVERITY SOURCE 07/05/2018 Drug Sulfa Swelling Unknown [facility]/416 (Sulfonamide [facility] 142809(SNOM Antibiotics)/F0 Repository ED CT) 00830577(RXNORM ) 07/05/2018 Drug morphine/V37258 Rash Unknown [facility]/416 1545(RXNORM) [facility] 993973(SNOM Repository ED CT) 07/05/2018 Drug latex/[id number] Rash Unknown [facility]/416 1(RXNORM) Hospital 837654(SNOM Repository ED CT) 02/26/2013 DRUG/251950 HYDROCODONE-JONO Vomiting [facility] 003(SNOMED TAMINOPHEN [facility] [place] CT) Repository 08/06/2012 DRUG MORPHINE SWELLING [facility] INGREDI/419 [place] 032738(SNOM Repository ED CT) 09/25/2010 Drug SULFA HIVES High [facility] Class/95343 (SULFONAMIDE [facility] [place] 1003(SNOMED ANTIBIOTICS) Repository CT) 01/15/2007 DRUG LATEX [facility] INGREDI/419 [facility] [place] 501250(SNOM Repository ED CT) NG/97710554 SULFA [facility] 6(SNOMED ([facility]ULFONAMIDE [facility] ANTIBIOTICS) Repository NG/47971464 LATEX [facility] 6(SNOMED [facility]) Repository NG/60711973 MORPHINE [facility] 6(SNOMED [facility]) Repository NG/08570726 HYDROCODONE-JONO [facility] 6(SNOMED TAMINOPHEN [facility]) Repository ENCOUNTERS ENCOUNTERS ADMIT/DISCHARGE ACCOUNT NUMBER ADMITTING ENCOUNTER LOCATION SOURCE CLASS 07/05/2018/07/14/[id number] [place] Inpatient [facility] 18 Bj K Encounter lding:[address] and Psych/Adult Angela CloRoom: [address] Repository 3310Bed: [facility] [id number] 07/05/2018/07/05/20 [id number] Emergency [place] [facility] 18 [facility] ding:ED Repository 06/29/2018/07/01/20 [id number] Inpatient [place] [address] Encounter ing:[facility] System MONITORED Repository Rosalina: S547Fvd: [id number] 06/25/2018/06/25/20 [id number] Emergency [place] [facility] ding:ED Repository 01/14/2018/01/16/20 [id number] Ambulatory [address] [place] Repository 10/09/2017 [id number] Ambulatory [facility] [place] Repository 10/09/2017/10/10/19 [id number] Ambulatory [address] MEDICAL Repository [facility] ng:AKLBG 10/07/2017/10/09/19 [id number] Ambulatory [address] Repository 09/17/2017/09/17/19 [id number] Ambulatory [address] Repository PAYERS PAYERS ENCOUNTER GUARANTOR PAYER SUBSCRIBER SOURCE 07/05/2018 Primary [facility] Insurance:[employer] ANDERSONDOB: [employer] Number: [id number] [facility] [id number] [facility] Repository Date:APT Name:[address] [address] 52709RD: 07/05/2018 CAILIN VANDANA Primary CAILIN VANDANA [place] [id number] Insurance:CARESOURCEP ANDERSONDOB: [facility] Number: [id number] [id number] Repository [address]Jcc: NO Date:2018-07-05 O PHONE () [address]ATTN: [place] [address]WC: 07/05/2018 Secondary NOT GIVENUNK [place] Insurance:SELF PAY [facility] Number: Effective Repository Date:2018-07-05 06/29/2018 CAILIN Primary [facility] ANDERSONDOB: Insurance:CARESOURCRIDGE ERICKSONB: System oscar Number: [id number] Repository [place] [employer] [id number], Date:Plan [address] [address]Jic: Name:[facility] [place] [address]Lcg: [address] [place] [address] () [id number]: [phone] 06/25/2018 CAILIN VANDANA Primary CAILIN VANDANA [place] [id number] Insurance:CARESOURCEP ANDERSONDOB: [facility] femi Number: [id number] [address] [id number] Repository [address]Yon: NO Date:2018-06-25P O PHONE () [address]ATTN: [place] [address]JI: 06/25/2018 Secondary NOT GIVENUNK [facility] Insurance:SELF PAY [facility] Number: Effective Repository Date:2018-06-25 10/09/2017 CAILIN R Primary [facility] ANDERSONDOB: Insurance:RHINANA SA DUMONTDOB: Health System OAPPolicy Number: [id number] [facility] [id number] [address] Date: [address]Hka: ()
== END 2018-07-05 08:22 | disposition short-term general hospital (02) ==
PROVIDERS: Emergency Provider Emergency Medicine; Family Provider Family Medicine; PCP Family Medicine
DX: F29 Unspecified psychosis not due to a substance or known physiological condition (principal); L25.9 Unspecified contact dermatitis, unspecified cause; N39.0 Urinary tract infection, site not specified; Z88.2 Allergy status to sulfonamides; F41.9 Anxiety disorder, unspecified; J45.909 Unspecified asthma, uncomplicated; G47.00 Insomnia, unspecified; F90.9 Attention-deficit hyperactivity disorder, unspecified type
CPT/HCPCS: 80053; 80307; 80320; 81001; 84443; 84703; 85025; 87086; 96372; 99285; G0480

== ENCOUNTER 2018-08-24 18:41 | Emergency (ER) | payer MEDICAID, SELFPAY ==
[2018-08-24 18:43] VITALS: BP 127/99; PULSE 124; RESP 20; TEMP 36.4; O2SAT 97; BMI 17.4
--- NOTE | 2018-08-24 19:06 | ED.RN ---
Patient SO came in and patient now stating she feels alot better and she would like to leave. Patient alert and oriented able to maintain airway and not pink slipped. Patient left under own free will.
== END 2018-08-24 19:05 ==
LOC: ED 19:09
PROVIDERS: Emergency Provider Emergency Medicine; Family Provider Family Medicine; PCP Family Medicine
DX: Z00.8 Encounter for other general examination (principal)

== ENCOUNTER 2018-09-30 12:54 | Observation (INO) | payer MEDICAID, SELFPAY ==
[2018-09-30 12:55] VITALS: BP 116/68; PULSE 125; RESP 16; TEMP 36.8; O2SAT 97; BMI 18.3
--- NOTE | 2018-09-30 13:15 | CM.ED ---
SOCIAL WORK NOTE PT PRESENTS TO ED BY POLICE. PT HAS BEEN PINK SLIPPED. PT WITH PARANOID DELUSIONS. HX OF METH USE. PT REPORTED TO NURSING SHE IS TRYING TO REDUCE USE TO 1 LINE/DAY. PT REPORTED HER ANXIETY IS OUT OF CONTROL. CRISIS TO EVALUATE FOR POSSIBLE PLACEMENT. THIS WORKER TO REMAIN AVAILABLE FOR NEEDS. FARHEEN RIZZO, RAILROAD DESIGN CONSULTANT, LITHOPRESS OPERATOR.
--- NOTE | 2018-09-30 13:39 | NURSING ---
PT IS PINK SLIPPED BY POLICE. PT HAS A BURN ON HAND FROM BOILING WATER. CLOTHING WAS REMOVED TO EVALUATED FOR FURTHER INJURIES. PT STATES I'M HAVING NO THOUGHTS OF HURTING MY SELF OR OTHERS. PT STATES I HAVE BEEN USING METH. PT DEMONSTRATES S/S OF ACUTE PSYCHOSIS AND POSSIBLE PARANOIA. PT STATES THEIR IS METAL UNDER MY SKIN. PEOPLE ARE PLAYING MEAN TRICKS ON ME. SHE IS RESTING IN BED WITH NO S/S OF DISTRESS. INFORMED PT THAT SHE IS AN INVOLUNTARY HOLD AND CAN NOT LEAVE UNDER HER ON VOLITION. STATED TO CIRCULAR SAW OPERATOR AND MYSELF THAT WE ARE TO CALL THE POLICE IF SHE TRIES TO LEAVE. [address]
[2018-09-30 13:52] LABS: Absolute Lymphocyte Count 3.06 X10^3/ul (0.83-4.51); Absolute Neutrophil Count 5.7 X10^3/uL (2.0-7.7); Basophil# 0.05 X10^3/uL; Basophil% 0.5 % (0-1); Eosinophil# 0.12 X10^3/uL; Eosinophils% 1.3 % (0-5); Hematocrit 34.7 % (37-47); Hemoglobin 11.2 g/dl (12.0-15.0); Lymphocyte # 3.06 X10^3/ul (4.0); Lymphocyte % 32.1 % (19-41); Mean Corp Hgb Conc 32.3 g/gl (32-36); Mean Corpuscular Hgb 27.6 pg (27.0-32.0); Mean Corpuscular Volume 85.5 fL (81-99); Monocyte# 0.61 X10^3/uL; Monocyte% 6.4 % (0-10); Neutrophil # 5.68 X10^3/uL (2.7-7.7); Neutrophil % 59.6 % (47-70); Platelet Count 374 K/mm3 (150-450); RBC Distribution Width CV 15.3 % (11.6-14.6); RBC Distribution Width SD 47.2 fl (35.1-43.9); Red Blood Count 4.06 M/mm3 (4.2-5.4); White Blood Count 9.5 K/mm3 (4.4-11.0)
[2018-09-30 13:57] LABS: POSITIVE COUNT NO; POSITIVE DIFFERENTIAL NO; POSITIVE MORPHOLOGY NO
[2018-09-30] MEDS: LORazepam 1 MG Tablet PO (14:01)
[2018-09-30 14:02] VITALS: BP 116/68; PULSE 116; RESP 20; O2SAT 99
--- NOTE | 2018-09-30 14:06 | ED.RN ---
PT REQUESTED HER LEGGING BACK. INFORMED AND CONSENTED TO RETURN OF LEGGINGS. PT WAS GIVEN ATIVAN 1 MG PO AND A MEAL TRAY. PT WAS INFORMED HER FATHER CALL AND GAVE ME PERMISSION TO SPEAK WITH HIM. SHE ALSO WANTED TO KNOW HOW HER CHILDREN WERE. PT CURRENTLY SITTING IN BED EATING. Taiwo JARRELL, RN 1998
[2018-09-30 14:13] LABS: ALB/GLOB Ratio 1.3 RATIO (0.9-2.4); AST(SGOT) 32 U/L (15-37); Alanine Aminotransfer ALT/SGPT 54 U/L (13-56); Albumin, Serum 4.4 g/dL (3.2-5.0); Alkaline Phosphatase 110 U/L (45-117); Anion Gap 8 (5-15); BUN 21 mg/dL (7-18); BUN/Creat Ratio 29.3 RATIO (10-20); Calcium,Total 8.6 mg/dL (8.5-10.1); Chloride 106 mmol/L (98-107); Creatinine, Serum 0.72 mg/dL (0.55-1.02); EST Glomerular Filtration Rate 97 mL/min (>60); Est Glom Filt Rate - Afr Amer 117 mL/min (>60); Estimated Creatinine Clearance 83.45 ml/min; Globulin 3.3 g/dL (2.2-4.2); Glucose 95 mg/dL (74-106); Lipase 60 U/L (73-393); Potassium 3.6 mmol/L (3.5-5.1); Protein, Total 7.7 g/dL (6.4-8.2); Sodium Level 137 mmol/L (136-145)
[2018-09-30 14:19] LABS: Pregnancy, Serum, hCG Quali. NEGATIVE Negative (0-9 Nonpreg)
[2018-09-30 14:30] LABS: Amphetamine Urine VISTA POSITIVE (<1000 ng/mL); Barbiturate Urine VISTA NEGATIVE (< 200 ng/mL); Benzodiazepine Urine VISTA NEGATIVE (< 200 ng/mL); Cocaine Urine VISTA NEGATIVE (< 300 ng/mL); Ecstacy Urine VISTA POSITIVE (< 500 ng/mL); Methadone Urine VISTA NEGATIVE (< 300 ng/mL); PCP Urine VISTA NEGATIVE (< 25 ng/mL); THC Urine VISTA NEGATIVE (< 50 ng/mL); Vista UDS pH Range 6
[2018-09-30 15:19] VITALS: BP 105/73; PULSE 115; RESP 16; O2SAT 99
--- NOTE | 2018-09-30 15:19 | PCM.HP.STD ---
Problem List (1) Methamphetamine intoxication Status: Acute (2) Opiate abuse, continuous Status: Acute (3) Chronic recurrent pancreatitis Status: Chronic (4) History of alcohol dependence Status: Chronic (5) Asthma Status: Chronic Qualifiers: Asthma severity: unspecified severity Asthma persistence: unspecified Asthma complication type: unspecified Qualified Code(s): J45.909 - Unspecified asthma, uncomplicated (6) Panic attack Status: Chronic (7) ADHD (attention deficit hyperactivity disorder) Status: Chronic Qualifiers: Attention deficit-hyperactivity disorder type: unspecified Qualified Code(s): F90.9 - Attention-deficit hyperactivity disorder, unspecified type (8) Agoraphobia without history of panic disorder Status: Chronic History of Present Illness Date of Admission: 09/30/18 Chief Complaint: Agitation, paranoia, recent meth abuse The patient is a 38 y/o F w/ PMHx: Anxiety/Depression/agoraphobia/panic attacks, Chronic pancreatitis s/p Whipple per patient report, history of prior alcohol abuse now noting that she is down to 1 tall boy per week, tobacco use, Opiate abuse with Suboxone illegally, methamphetamine abuse currently down she notes to one line snorted per day but was much heavier prior to this who presents to the [facility] ED on 09/30/18 with history of being found by the police, agitated, recently accidentally her hand with boiling water but denies any suicidal or homicidal ideation but demonstrating very psychotic tendencies with paranoia stating that there is metal underneath her skin and that people are playing tricks on her. In the ED workup included T 98.2, heart rate 125, BP 116/68, respiratory rate 16, 97% on room air, CBC with W BC 9.5, hemoglobin 11.2, platelet 374, CMP with BUN/Cr 21/0.72, lipase 60 otherwise unremarkable, negative , UDS w/ positive amphetamine, methamphetamine, alcohol 6. Given patient ongoing agitation and possibility for accidental self-harm secondary to severe paranoia ED requested admission for close observation. Past Medical History Past Medical History (Chronic Problems): Chronic Problems Pancreatitis (Chronic) Chronic recurrent pancreatitis (Chronic) Opioid dependence in remission (Chronic) History of insomnia (Chronic) History of anxiety disorder (Chronic) History of alcohol dependence (Chronic) Asthma (Chronic) Panic attack (Chronic) ADHD (attention deficit hyperactivity disorder) (Chronic) Agoraphobia without history of panic disorder (Chronic) Allergies latex Allergy (Verified 08/24/18 18:42) Rash morphine Allergy (Verified 08/24/18 18:42) Rash Sulfa (Sulfonamide Antibiotics) Allergy (Verified 08/24/18 18:42) Swelling Home Medications: Ambulatory Orders Medication Instructions Recorded lipase/protease/amylase [Creon DR 2 cap PO BID 09/22/16 12,000 Unit Capsule] Clonazepam [Klonopin] 0.5 mg PO BID 05/10/17 Benztropine Mesylate 1 mg PO QHS 07/05/18 Olanzapine 5 mg PO QHS 07/05/18 Topiramate [Topamax] 50 mg PO BID 07/05/18 Risperidone 0.25 mg PO BID 09/30/18 Surgical History: - - x2, Whipple, cholecystectomy. Psychiatric History: Anxiety, Attn. deficit disorder, Depression, - - Attacks and agoraphobia [employer] History: - - Unclear left ovarian findings, currently patient noting possible cancer but unclear work-up. Lives: Alone Smoking Status: Current every day smoker - She notes smoking 3-4 cigarettes daily. Tobacco Use: Cigarettes Alcohol: Occasional - Patient previous alcohol abuse but currently down to 1 tablet/week. Drugs: - - Patient currently using methamphetamines, snorted as well as Suboxone illegally purchased. She denies any prior history of IV drug abuse. - *Family History Paternal History Items: - - Father with a history of heart disease, of a fatal [place] at age 4545 years old. Maternal History Items: - - Patient denies any marked maternal family history for heart disease, diabetes or cancer. Review of Systems Constitutional: Reports: Anorexia, Fatigue. Denies: Chills, Fever, Weight Change HEENT: Reports: Sore Throat. Denies: Head Aches, Sinus Congestion, Sinus Drainage Cardiovascular: Denies: Chest Pain, Palpitations Respiratory: Denies: Cough, Shortness of breath at rest, Sputum production Gastrointestinal: Denies: Abdominal Pain, Nausea, Vomiting Genitourinary: Denies: Dysuria Musculoskeletal: Denies: Joint Pain, Joint Tenderness Skin: Reports: Skin Changes. Denies: Rash, Wounds Neurological: Denies: Numbness, Tingling, Focal weakness Psychiatric: Reports: Anxiety, Depression, - - Paranoia and delusions.. Denies: Homicidal Ideations, Suicidal Ideations Hematologic/ Lymphatic: Denies: Easy Bruising, Easy Bleeding VTE Information - Inpt Only VTE Present on Admission: No VTE Mechan Device Prophylaxis: None - Low risk encourage ambulation, suspect SCDs or prophylaxis might cause worsened paranoia. VTE Pharm Prophylaxis ordered?: No Patient Problems: Active and Suspected Problems Methamphetamine intoxication (Acute) Opiate abuse, continuous (Acute) Subjective: Walking in the ED room, wearing gloves currently, speaking very fast although forces very hoarse. Objective: Physical Examination: General: awake, alert, oriented to self, place, some recent events but do not suspect that she is at her baseline, intermittently cooperative, walking around the room, wearing gloves, using cleaning wipes, noting very paranoid comments. Skin: normal color, turgor, no icterus, cyanosis, picking present. HEENT: AT/NC, EOMI, PERRLA, dry MM, no carotid bruits or JVD noted. Lungs: CTA bilaterally, moderate effort, mild decrease BL bases, no rales, ronchi or wheezing. Heart: Cardiac with regular rhythm; no gallop, rub audible. Abdomen: soft, thin habitus, NTTP, ND, normal BS, no HSM. Extremities: no cyanosis, clubbing, or edema. Neurological: patient awake, alert, oriented as noted, improving; cognitive function SPECT not baseline intact; pupils equally reactive to light and accomodation; cranial nerves II-XII grossly normal, moving all 4 extremities, no focal deficits, strength difficult to assess as will not sit still but appears intact. Psychiatric: affect appears agitated, anxious, no evidence of acute depressive feelings. - Physical Exam Vital Signs Temp Pulse Resp BP Pulse Ox 98.2 F 116 H 20 H 116/68 99 09/30/18 12:55 09/30/18 14:02 09/30/18 14:02 09/30/18 14:02 09/30/18 14:02 Oxygen Delivery Method Room Air Weight: 110 lb Body Mass Index (BMI) 18.3 Laboratory Tests Past 24 Hrs 09/30/18 09/30/18 09/30/18 13:35 13:40 13:40 WBC 9.5 RBC 4.06 L Hgb 11.2 L Hct 34.7 L MCV 85.5 MCH 27.6 MCHC 32.3 RDW 15.3 H RDW Differential 47.2 H Plt Count 374 MPV 9.0 Immature Gran % (Auto) 0.100 Neut % (Auto) 59.6 Lymph % (Auto) 32.1 [place] % (Auto) 6.4 Eos % (Auto) 1.3 Baso % (Auto) 0.5 Absolute Neuts (auto) 5.7 Absolute Lymphs (auto) 3.06 Total Counted Not Reportable Sodium 137 Potassium 3.6 Chloride 106 Carbon Dioxide 23.0 Anion Gap 8 BUN 21 H Creatinine 0.72 Estim Creat Clear Calc 83.45 Est GFR (MDRD) Af Amer 117 Est GFR (MDRD) Non-Af 97 BUN/Creatinine Ratio 29.3 H Glucose 95 Calcium 8.6 Total Bilirubin 0.80 AST 32 ALT 54 Alkaline Phosphatase 110 Total Protein 7.7 Albumin 4.4 Globulin 3.3 Albumin/Globulin Ratio 1.3 Lipase 60 L Serum , Qual Urine Opiates Screen NEGATIVE Urine Methadone Screen NEGATIVE Ur Barbiturates Screen NEGATIVE Ur Phencyclidine Scrn NEGATIVE Ur Amphetamines Screen POSITIVE H U Methamphetamin-MDMA POSITIVE H U Benzodiazepines Scrn NEGATIVE Urine Cocaine Screen NEGATIVE U Cannabinoids Screen NEGATIVE Ur Drug Screen Comment Ethyl Alcohol 09/30/18 09/30/18 13:40 13:40 WBC RBC Hgb Hct MCV MCH MCHC RDW RDW Differential Plt Count MPV Immature Gran % (Auto) Neut % (Auto) Lymph % (Auto) [place] % (Auto) Eos % (Auto) Baso % (Auto) Absolute Neuts (auto) Absolute Lymphs (auto) Total Counted Sodium Potassium Chloride Carbon Dioxide Anion Gap BUN Creatinine Estim Creat Clear Calc Est GFR (MDRD) Af Amer Est GFR (MDRD) Non-Af BUN/Creatinine Ratio Glucose Calcium Total Bilirubin AST ALT Alkaline Phosphatase Total Protein Albumin Globulin Albumin/Globulin Ratio Lipase Serum , Qual NEGATIVE Urine Opiates Screen Urine Methadone Screen Ur Barbiturates Screen Ur Phencyclidine Scrn Ur Amphetamines Screen U Methamphetamin-MDMA U Benzodiazepines Scrn Urine Cocaine Screen U Cannabinoids Screen Ur Drug Screen Comment Ethyl Alcohol 6.0 Assessment/Plan All Active Problems Methamphetamine intoxication (Acute) Opiate abuse, continuous (Acute) Abdominal pain (Acute) The patient is a 38 y/o F w/ PMHx: Anxiety/Depression/agoraphobia/panic attacks, Chronic pancreatitis s/p Whipple per patient report, history of prior alcohol abuse now noting that she is down to 1 tall boy per week, tobacco use, Opiate abuse with Suboxone illegally, methamphetamine abuse currently down she notes to one line snorted per day but was much heavier prior to this who presents to the [facility] ED on 09/30/18 with history of being found by the police, agitated, recently accidentally her hand with boiling water but denies any suicidal or homicidal ideation but demonstrating very psychotic tendencies. (1) Methamphetamine abuse with acute intoxication with resulting paranoia with concern for accidental self-harm: Patient with last methamphetamine and Suboxone use at 6 PM evening prior, very agitated and accidental harm already occurred, picked up by police, pink slip performed, will admit to MedSurg, aggressively hydrate, consult case management and if clinically improved and more appropriate in a.m. with plan discharge. (2) Polysubstance abuse: As noted patient uses currently methamphetamine which is snorted as well as intermittent Suboxone which is purchased off the street as well as occasional tall boy with prior history of heavy alcohol abuse. Given patient current paranoia declined any testing for HIV or hepatitis. (3) Tobacco Abuse: Encouraged cessation, inpatient consultation per RT, NR if desired. (4) Chronic pancreatitis: Continue home Creon regimen. Allow diet. (5) Anxiety, depression, panic disorder and agoraphobia: We will resume patient's Klonopin, olanzapine, risperidone and Topamax regimen. (6) History of alcohol abuse: Currently states that she is down to 1 tablet/week, prior history of heavy abuse, will obtain mag and fossa levels and replete if appropriate. (7) DVT prophylaxis: Low risk, ambulation encouraged. Code Visit OBSV E&M: 07521 Initial observation care L3
--- NOTE | 2018-09-30 15:20 | ED.RN ---
pt was found bathing in hand soap. warm wipes were provide to patient to bath with. case maker at bedside at this time. rajendra morrissey rn [id number]
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
--- NOTE | 2018-09-30 15:26 | CM.ED ---
DISCUSSED CASE WITH DR. DAMICO. PT TO BE ADMITTED UNDER DR. REY. SOCIAL SERVICE ASSESSMENT Referral Date: 09/30/18 Date of Assessment: 09/30/18 Informant: SELF-REFERRAL Reason for Consult: MENTAL HEALTH/SUBSTANCE ABUSE Information obtained from: PATIENT Living Arrangements: PT LIVES HOME ALONE IN AN APARTMENT. Employment/Financial: PT NOT CURRENTLY EMPLOYED. PT DENIES ANY FINANCIAL CONCERNS AT THIS TIME. Supports: PT STATES GOOD SUPPORT FROM SISTER Social/Family Stressors: PT UPSET WITH SELF FOR USING DRUGS. PT CURRENTLY DOES NOT HAVE CUSTODY OF CHILDREN. PT REPORTS HER MOTHER AND FATHER HAVE CUSTODY OF HER 2 CHILDREN. PT STATES IS CURRENTLY NOT ABLE TO SEE HER CHILDREN AND THAT INTENSIFIES HER PANIC ATTACKS AND WORRY. Mental Health History: PT REPORTS HX OF ANXIETY, DEPRESSION, ADHD, AGORAPHOBIA. PT REPORTS IS NOT CURRENTLY ON MEDICATION OR FOLLOWING WITH AN AGENCY. Substance Abuse History: PT ADMITS TO HX OF SUBSTANCE ABUSE Substance(s) of choice: ALCOHOL, OPIATES, METH Last use: YESTERDAY, 09/29/18 Interventions: SOCIAL SERVICE ASSESSMENT CALL TO [facility] FOR INTAKE APPOINTMENT- PT TO DO A WALK IN AFTER D/C FROM HOSPITAL. WALK-IN'S TAKEN BETWEEN 9A-3P M-F. Assessment: PT PRESENTS TO ED PINK SLIPPED BY PD. PT PRESENTS WITH PARANOIA AND ADMITS TO METH AND SUBOXONE USE. PT LIVES HOME ALONE IN AN APARTMENT. PT STATES BELIEVES PEOPLE HAVE BEEN IN HER APARTMENT AND STATES PEOPLE HAVE STOLEN THINGS. PT STATES FEELS PEOPLE ARE KEEPING A CLOSE EYE ON ME. PT STATES DOES NOT CURRENTLY HAVE CUSTODY OF CHILDREN. PT BECAME TEARFUL WHEN TALKING ABOUT HER CHILDREN AND RECENT LOSS OF HER GRANDMOTHER. MUCH EMOTIONAL SUPPORT PROVIDED. PT STATES HX OF ANXIETY, DEPRESSION, ADHD, AND AGORAPHOBIA. PT STATES IS CURRENTLY NOT TAKING ANY MEDICATIONS. PT WISHES TO GET BACK INTO TREATMENT FOR SUBSTANCE ABUSE AND MENTAL HEALTH. DISCUSSED OPTIONS AND PT REQUESTING THIS WORKER SET UP APPOINTMENT WITH [facility]. CALL TO [facility] PER PT'S REQUEST, SPOKE WITH GREGORY. PER GREGORY, NO APPOINTMENT FOR A FEW WEEKS AND STATES PT ABLE TO DO A WALK IN INTAKE APPOINTMENT BETWEEN THE HOURS OF 9A-3P FRIDAY-FRIDAY. UPDATED PT. NURSING AND PHYSICIAN UPDATED ON THIS WORKER'S ASSESSMENT. PLAN: ADMIT
[2018-09-30 16:03] VITALS: BMI 17.1
[2018-09-30 16:30] VITALS: BP 117/78; PULSE 97; RESP 18; TEMP 36.7; O2SAT 100
[2018-09-30] MEDS: 0.9% Normal Saline 1,000 ML 150 ML IV (18:23)
[2018-09-30 18:49] LABS: Phosphorus 3.7 mg/dL (2.5-4.9)
[2018-09-30 19:48] VITALS: O2SAT 98
[2018-09-30] MEDS: Topiramate 50 MG Tablet PO (20:10)
[2018-09-30] MEDS: OLANZapine 2.5 MG Tablet 5 MG PO (20:10)
[2018-09-30] MEDS: Famotidine 20 MG Tablet PO (20:10)
[2018-09-30] MEDS: clonazePAM 0.5 MG Tablet PO (20:11)
[2018-09-30] MEDS: Benztropine 2 MG Tablet 1 MG PO (20:11)
[2018-09-30 21:50] VITALS: BP 104/46; PULSE 78; RESP 18; TEMP 36.6; O2SAT 98
[2018-10-01] MEDS: 0.9% Normal Saline 1,000 ML 150 ML IV ×2 (01:13→07:20)
[2018-10-01 05:00] VITALS: BP 96/65; PULSE 57; RESP 14; TEMP 37.1; O2SAT 97
[2018-10-01 06:33] LABS: ALB/GLOB Ratio 0.6 RATIO (0.9-2.4); AST(SGOT) 25 U/L (15-37); Alanine Aminotransfer ALT/SGPT 40 U/L (13-56); Albumin, Serum 2.1 g/dL (3.2-5.0); Alkaline Phosphatase 81 U/L (45-117); Anion Gap 10 (5-15); BUN 14 mg/dL (7-18); BUN/Creat Ratio 23.8 RATIO (10-20); Calcium,Total 7.4 mg/dL (8.5-10.1); Chloride 114 mmol/L (98-107); Creatinine, Serum 0.59 mg/dL (0.55-1.02); EST Glomerular Filtration Rate 121 mL/min (>60); Est Glom Filt Rate - Afr Amer 146 mL/min (>60); Estimated Creatinine Clearance 95.35 ml/min; Globulin 3.3 g/dL (2.2-4.2); Glucose 103 mg/dL (74-106); Potassium 3.9 mmol/L (3.5-5.1); Protein, Total 5.4 g/dL (6.4-8.2); Sodium Level 140 mmol/L (136-145)
[2018-10-01 06:58] LABS: Absolute Lymphocyte Count 2.55 X10^3/ul (0.83-4.51); Absolute Neutrophil Count 1.4 X10^3/uL (2.0-7.7); Basophil# 0.04 X10^3/uL; Basophil% 0.9 % (0-1); Eosinophil# 0.13 X10^3/uL; Hematocrit 32.3 % (37-47); Hemoglobin 10.1 g/dl (12.0-15.0); Lymphocyte # 2.55 X10^3/ul (4.0); Mean Corp Hgb Conc 31.3 g/gl (32-36); Mean Corpuscular Hgb 26.9 pg (27.0-32.0); Mean Corpuscular Volume 86.1 fL (81-99); Monocyte# 0.26 X10^3/uL; Monocyte% 5.9 % (0-10); Neutrophil # 1.42 X10^3/uL (2.7-7.7); Neutrophil % 32.2 % (47-70); Platelet Count 265 K/mm3 (150-450); RBC Distribution Width CV 16.1 % (11.6-14.6); RBC Distribution Width SD 50.5 fl (35.1-43.9); Red Blood Count 3.75 M/mm3 (4.2-5.4); White Blood Count 4.4 K/mm3 (4.4-11.0)
[2018-10-01 06:59] LABS: POSITIVE COUNT NO; POSITIVE DIFFERENTIAL NO; POSITIVE MORPHOLOGY NO
[2018-10-01 08:47] VITALS: BP 98/66; PULSE 89; RESP 18; TEMP 37.1; O2SAT 95
[2018-10-01] MEDS: clonazePAM 0.5 MG Tablet PO ×2 (08:48→22:10)
[2018-10-01] MEDS: Famotidine 20 MG Tablet PO ×2 (08:49→22:10)
[2018-10-01] MEDS: Topiramate 50 MG Tablet PO ×2 (08:49→22:10)
--- NOTE | 2018-10-01 09:40 | PN_ITS ---
Patient Problems: Active and Suspected Problems Methamphetamine intoxication (Acute) Opiate abuse, continuous (Acute) Subjective: Patient is a 38-year-old lady with history of polysubstance abuse admitted with agitation and paranoia after recent meth use admitted to regular nursing floor for medical stabilization Objective: GENERAL: cooperative HEENT: Atraumatic; EYES; Anicteric, NECK; supple, normal thyroid, RESPIRATORY: Diminished to auscultation bilaterally, CARDIOVASCULAR: Regular S1 S2, GI: soft, non-tender, normoactive bowel sounds, : No Renal angle tenderness; EXTREMITIES: Patient wearing a latex glove on her right hand MUSCULOSKELETAL: No Joint Tenderness; NEURO: Awake; no lateralizing signs. SKIN: No Rash PSYCH; Normal affect Vitals/I&O's: Vital Signs Temp Pulse Resp BP Pulse Ox 98.7 F 89 18 98/66 95 10/01/18 08:47 10/01/18 08:47 10/01/18 08:47 10/01/18 08:47 10/01/18 08:47 Oxygen Delivery Method Room Air Weight: 46.72 kg Body Mass Index (BMI) 17.1 Intake and Output for Last 24 Hours 09/29/18 09/30/18 10/01/18 23:59 23:59 23:59 Intake Total 350 / 350 2260 / 2260 Balance 350 / 350 2260 / 2260 Laboratory Results 09/30/18 13:35: Urine Opiates Screen NEGATIVE, Urine Methadone Screen NEGATIVE, Ur Barbiturates Screen NEGATIVE, Ur Phencyclidine Scrn NEGATIVE, Ur Amphetamines Screen POSITIVE H, U Methamphetamin-MDMA POSITIVE H, U Benzodiazepines Scrn NEGATIVE, Urine Cocaine Screen NEGATIVE, U Cannabinoids Screen NEGATIVE, Ur Drug Screen Comment 09/30/18 13:40: WBC 9.5, RBC 4.06 L, Hgb 11.2 L, Hct 34.7 L, MCV 85.5, MCH 27.6, MCHC 32.3, RDW 15.3 H, RDW Differential 47.2 H, Plt Count 374, MPV 9.0, Immature Gran % (Auto) 0.100, Neut % (Auto) 59.6, Lymph % (Auto) 32.1, [place] % (Auto) 6.4, Eos % (Auto) 1.3, Baso % (Auto) 0.5, Absolute Neuts (auto) 5.7, Absolute Lymphs (auto) 3.06, Total Counted Not Reportable 09/30/18 13:40: Sodium 137, Potassium 3.6, Chloride 106, Carbon Dioxide 23.0, Anion Gap 8, BUN 21 H, Creatinine 0.72, Estim Creat Clear Calc 83.45, Est GFR (MDRD) Af Amer 117, Est GFR (MDRD) Non-Af 97, BUN/Creatinine Ratio 29.3 H, Glucose 95, Calcium 8.6, Total Bilirubin 0.80, AST 32, ALT 54, Alkaline Beatriz sphatase 110, Total Protein 7.7, Albumin 4.4, Globulin 3.3, Albumin/Globulin Ratio 1.3, Lipase 60 L 09/30/18 13:40: Ethyl Alcohol 6.0 09/30/18 13:40: Serum , Qual NEGATIVE 09/30/18 13:40: Phosphorus 3.7, Magnesium 2.0 10/01/18 05:50: WBC 4.4, RBC 3.75 L, Hgb 10.1 L, Hct 32.3 L, MCV 86.1, MCH 26.9 L, MCHC 31.3 L, RDW 16.1 H, RDW Differential 50.5 H, Plt Count 265, MPV 10.0, Immature Gran % (Auto) 0.000, Neut % (Auto) 32.2 L, Lymph % (Auto) 58.0 H, [place] % (Auto) 5.9, Eos % (Auto) 3.0, Baso % (Auto) 0.9, Absolute Neuts (auto) 1.4 L, Absolute Lymphs (auto) 2.55, Total Counted Not Reportable 10/01/18 05:50: Sodium 140, Potassium 3.9, Chloride 114 H, Carbon Dioxide 16.0 L , Anion Gap 10, BUN 14, Creatinine 0.59, Estim Creat Clear Calc 95.35, Est GFR (MDRD) Af Amer 146, Est GFR (MDRD) Non-Af 121, BUN/Creatinine Ratio 23.8 H, Glucose 103, Calcium 7.4 L, Total Bilirubin 0.50, AST 25, ALT 40, Alkaline Phosphatase 81, Total Protein 5.4 L, Albumin 2.1 L, Globulin 3.3, Albumin/Globulin Ratio 0.6 L Current Medications Acetaminophen (Tylenol) 650 mg PO Q6H PRN PRN PRN Reason: Non-cardiac pain (mod-severe) Al Hydroxide/Mg Hydroxide (Mylanta Ii) 30 ml PO Q6H PRN PRN PRN Reason: Gastric burning Benztropine Mesylate (Cogentin) 1 mg PO QHS [facility] Last Admin: 09/30/18 20:11 Dose: 1 mg Clonazepam (Klonopin) 0.5 mg PO BID [facility] Last Admin: 10/01/18 08:48 Dose: 0.5 mg Famotidine (Pepcid) 20 mg PO BID [facility] Last Admin: 10/01/18 08:49 Dose: 20 mg Hydralazine HCl (Apresoline Iv) 10 mg IV Q4H PRN PRN PRN Reason: SBP > 160 Sodium Chloride () 1,000 mls @ 150 mls/hr IV .Q6H40M [facility] Last Admin: 10/01/18 07:20 Dose: 150 mls/hr Magnesium Hydroxide (Milk Of Magnesia) 30 ml PO DAILY PRN PRN PRN Reason: Constipation Olanzapine (Zyprexa) 5 mg PO QHS [facility] Last Admin: 09/30/18 20:10 Dose: 5 mg Ondansetron HCl (Zofran) 4 mg IV Q8H PRN PRN PRN Reason: NAUSEA/VOMITING Pancrelipase (Creon Dr 12,000 Unit Capsule) 2 capsule PO BIDAC [facility] Last Admin: 10/01/18 07:20 Dose: 2 capsule Sodium Chloride () 5 - 15 ml IV UD PRN PRN Reason: SALINE FLUSH Topiramate (Topamax) 50 mg PO BID [facility] Last Admin: 10/01/18 08:49 Dose: 50 mg Medical Necessity - Tobacco Use Smoking Status: Current every day smoker Tobacco Use: Cigarettes Assessment/Plan All Active Problems Methamphetamine intoxication (Acute) Opiate abuse, continuous (Acute) Abdominal pain (Acute) Patient is a 38-year-old lady with history of polysubstance abuse admitted with agitation and paranoia after recent meth use admitted to regular nursing floor for medical stabilization 1. Acute psychosis attributed to recent meth Suboxone use. Admitted to regular nursing floor for medical stabilization. Patient is medically stable as of the morning of 10/01/2018 for evaluation by the crisis center 2. History of depression with severe anxiety and agoraphobia 3. History of chronic pancreatitis currently stable 4. Polysubstance abuse: with recent methamphetamineas well as intermittent Suboxone ; counseled on cessation 5. Tobacco dependence counseled on cessation, offered nicotine patch for tobacco cravings 6. DVT prophylaxis: Low risk, ambulation encouraged. Code Visit OBSV E&M: 44676 Subsequent observation care L3
--- NOTE | 2018-10-01 09:52 | NURSING ---
talked w/ Camelia from crisis, informed of consult.
[2018-10-01] MEDS: Acetaminophen 325 MG Tablet 650 MG PO (11:35)
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
[2018-10-01 15:18] VITALS: BP 102/68; PULSE 76; RESP 18; TEMP 37; O2SAT 95
[2018-10-01] MEDS: BENZOCAINE/MENTHOL 1 LOZENGE MUCOUS MEM (16:02)
[2018-10-01 16:19] LABS: Mucous, Urine 0 SEEN /hpf (<or=2+)
[2018-10-01 17:12] LABS: Color, Urine Straw (Yellow); Glucose, Dipstick Normal (Normal); Ketone-Dipstick Negative (Negative); Leukocyte Esterase-Dipstick 500 /ul (Negative); Nitrite-Dipstick Negative (Negative); Occult Blood-Urine 10 /ul (Negative); Protein-Dipstick Negative (Negative); Urine Bilirubin Dipstick Negative (Negative); Urine Clarity Cloudy (Clear); Urine Urobilinogen Normal (Normal)
[2018-10-01 17:24] LABS: Squamous Epithelial Cells - UA 10-25 SEEN /hpf (5-10); White Blood Cells 10-25 SEEN /hpf (0-5)
[2018-10-01 17:25] LABS: Bacteria 2+ /hpf (None Seen); Red Blood Cells-Urine 0-5 SEEN /hpf (0-5)
[2018-10-01 21:19] VITALS: BP 99/47; PULSE 64; RESP 16; TEMP 36.9; O2SAT 100
[2018-10-01] MEDS: Benztropine 2 MG Tablet 1 MG PO (22:10)
[2018-10-01] MEDS: OLANZapine 2.5 MG Tablet 5 MG PO (22:10)
[2018-10-02 02:49] VITALS: BP 102/55; PULSE 87; RESP 14; TEMP 36.8; O2SAT 99
[2018-10-02 07:05] VITALS: O2SAT 97
[2018-10-02 09:24] VITALS: BP 97/56; PULSE 90; RESP 16; TEMP 37; O2SAT 98
[2018-10-02] MEDS: Famotidine 20 MG Tablet PO (09:26)
[2018-10-02] MEDS: Topiramate 50 MG Tablet PO (09:26)
[2018-10-02] MEDS: clonazePAM 0.5 MG Tablet PO (09:26)
--- NOTE | 2018-10-02 09:29 | DCINST_ITS ---
- Discharge Diagnoses Current Active Problems: Current Active and Chronic Problems Methamphetamine intoxication (Acute) Opiate abuse, continuous (Acute) You will use the following diet at home:: Regular Discharge Activity: May not drive while taking narcotic pain medications. Allergies/Adverse Reactions: Allergies latex Allergy (Verified 08/24/18 18:42) Rash morphine Allergy (Verified 08/24/18 18:42) Rash Sulfa (Sulfonamide Antibiotics) Allergy (Verified 08/24/18 18:42) Swelling Medications to take at Discharge lipase/protease/amylase [Creon DR 12,000 Unit Capsule] 2 cap PO BID 09/22/16 Clonazepam [Klonopin] 0.5 mg PO BID 05/10/17 Benztropine Mesylate 1 mg PO QHS 07/05/18 Olanzapine 5 mg PO QHS 07/05/18 Topiramate [Topamax] 50 mg PO BID 07/05/18 Risperidone 0.25 mg PO BID 09/30/18 Cephalexin [Keflex] 500 mg PO Q12 #14 capsule 10/02/18 The following prescriptions were given: Cephalexin [Keflex] 500 mg PO Q12 #14 capsule Primary Care Physician: Reji Sood DO [Primary Care Provider] - Please follow up with your Primary Care Physician in: in 5-7 days Test Results: Test results from this visit will be discussed in further detail at your follow- up appointment, if applicable. Proposed Discharge Date: 10/02/18
--- NOTE | 2018-10-02 09:30 | PCM.DC.SUM ---
Discharge Date and Diagnosis - Problem List Patient Problems: Active and Suspected Problems Methamphetamine intoxication (Acute) Opiate abuse, continuous (Acute) Date of Admission: 09/30/18 Date of Discharge: 10/02/18 - Primary Discharge Diagnosis Active and Suspected Problems Methamphetamine intoxication (Acute) Opiate abuse, continuous (Acute) - Secondary Discharge Diagnosis Chronic Problems Pancreatitis (Chronic) Chronic recurrent pancreatitis (Chronic) Opioid dependence in remission (Chronic) History of insomnia (Chronic) History of anxiety disorder (Chronic) History of alcohol dependence (Chronic) Asthma (Chronic) Panic attack (Chronic) ADHD (attention deficit hyperactivity disorder) (Chronic) Agoraphobia without history of panic disorder (Chronic) Hospital Course and Treatment Consultations 10/01/18 09:49 Crisis [Consult: Mental Health/Crisis] Routine Reason for consult?: paranoid medically cleared Date Notified:: 10/01/18 Time notified:: 09:52 Operations: None Summary of Care Provided: Patient is a 38-year-old lady with history of polysubstance abuse admitted with agitation and paranoia after recent meth use admitted to regular nursing floor for medical stabilization 1. Acute psychosis attributed to recent meth Suboxone use. Admitted to regular nursing floor for medical stabilization. Patient is medically stable as of the morning of 10/01/2018 for evaluation by the crisis center 2. History of depression with severe anxiety and agoraphobia 3. History of chronic pancreatitis currently stable 4. Polysubstance abuse: with recent methamphetamineas well as intermittent Suboxone ; counseled on cessation 5. Tobacco dependence counseled on cessation, offered nicotine patch for tobacco cravings 6. DVT prophylaxis: Low risk, ambulation encouraged. 7. Acute cystitis patient was discharged home on Keflex 500 mg p.o. twice daily for 7 days instructed to follow-up with PCP in 3-5 days for subsequent care Patient Problems: Active and Suspected Problems Methamphetamine intoxication (Acute) Opiate abuse, continuous (Acute) Objective: GENERAL: cooperative HEENT: Atraumatic; EYES; Anicteric, NECK; supple, normal thyroid, RESPIRATORY: Diminished to auscultation bilaterally, CARDIOVASCULAR: Regular S1 S2, GI: soft, non-tender, normoactive bowel sounds, : No Renal angle tenderness; EXTREMITIES: Patient wearing a latex glove on her right hand MUSCULOSKELETAL: No Joint Tenderness; NEURO: Awake; no lateralizing signs. SKIN: No Rash PSYCH; Normal affect - Physical Exam Vital Signs Temp Pulse Resp BP Pulse Ox 98.6 F 90 16 97/56 L 98 10/02/18 09:24 10/02/18 09:24 10/02/18 09:24 10/02/18 09:24 10/02/18 09:24 Oxygen Delivery Method Room Air Weight: 46.72 kg Body Mass Index (BMI) 17.1 Intake and Output for Last 24 Hours 09/30/18 10/01/18 10/02/18 23:59 23:59 23:59 Intake Total 350 / 350 3871 / 3871 500 / 500 Balance 350 / 350 3871 / 3871 500 / 500 Laboratory Tests Past 24 Hrs 10/01/18 16:10 Urine Color Straw Urine Clarity Cloudy Urine pH 8.0 Ur Specific [place] 1.010 Urine Protein Negative Urine Glucose (UA) Normal Urine Ketones Negative Urine Occult Blood 10 H Urine Nitrite Negative Urine Bilirubin Negative Urine Urobilinogen Normal Ur Leukocyte Esterase 500 H Urine RBC 0-5 SEEN Urine WBC 10-25 SEEN Ur Squamous Epith Cells 10-25 SEEN Urine Bacteria 2+ Urine Mucus 0 SEEN Discharge Diet: No Restrictions Discharge Activity: May not drive while taking narcotic pain medications. Home Medications: Medications to take at Discharge lipase/protease/amylase [Creon DR 12,000 Unit Capsule] 2 cap PO BID 09/22/16 Clonazepam [Klonopin] 0.5 mg PO BID 05/10/17 Benztropine Mesylate 1 mg PO QHS 07/05/18 Olanzapine 5 mg PO QHS 07/05/18 Topiramate [Topamax] 50 mg PO BID 07/05/18 Risperidone 0.25 mg PO BID 09/30/18 Cephalexin [Keflex] 500 mg PO Q12 #14 capsule 10/02/18 Following Prescrptions Were Given to Patient: Cephalexin [Keflex] 500 mg PO Q12 #14 capsule Primary Care Physician: Reji Sood DO [Primary Care Provider] - Please follow up with your Primary Care Physician in: in 5-7 days Disposition: Home Minutes spent on discharge:: 35 Patient Condition:: Stable Medical Necessity - Tobacco Use Smoking Status: Current every day smoker Tobacco Use: Cigarettes Meaningful Use Info Meaningful Use Diagnoses (Choose all that apply): None applicable Code Visit OBSV E&M: 13666 Observation care discharge
--- NOTE | 2018-10-02 10:06 | CASEMGMT ---
Social Work Note IRIS received message from pt's father Emanuel Christine. Emanuel is not listed as supervisor contact lens on pt's demographics. SW in to speak with pt. SW informed pt that her father had called this worker. SW asked pt if this worker is able to return Emanuel's phone call and provde update. Pt gave this worker permission to return Emanuel's phone call and update him. SW asked pt how she is doing. Pt states she is doing better and plans on going to [facility] today for walk-in appointments. Pt denied additional needs or concerns at this time. IRIS placed a call to pt's father Emanuel. IRIS updated Emanuel on pt's discharge today and plans to go to [facility] today for walk-in appointments. Emanuel denied additional questions at this time. Plan: Pt to go to [facility] for walk-in appointment today Chioma Milian ORDAINED MINISTER, UNATTENDED GROUND SENSOR SPECIALIST
--- NOTE | 2018-10-02 12:15 | CASEMGMT ---
Social Work Note IRIS received call from Kaylynn Downs that [facility] took pt home but pt didnd't have keys for apartment and was brought back to [facility] ED and is in waiting room. IRIS placed a call to pt's father Emanuel. Emanuel states he is out of town and no other family/friends are able to let pt in to apartment as no one else has keys. Emanuel provided [employer] Number [phone] and asked this worker to call and ask for Marky to see if he is able to let pt into apartment. IRSI placed a call to [employer] and spoke with Megan as Marky was out of the office. Megan states that she is able to meet pt at her apartment and let her know. IRIS spoke with Kaylynn Downs who states she will call [facility] to come back and picker pt around 12:30pm. IRIS placed a call to Megan and Kane Romeo and updated her that pt will be picked up at 12:30pm. Megan states she will meet pt at her apartment and let pt in to apartment. IRIS attempted to update pt of this in ED Waiting room but pt had already been picked up by the hospital van. ED RN updated. Chioma Milian DIRECTOR OF SUSTAINABILITY PROGRAMS, [employer]
== END 2018-10-02 11:27 | disposition home or self-care (01) ==
LOC: ED 14:49 → MS3 15:55
PROVIDERS: Admitting Provider Family Medicine; Emergency Provider Emergency Medicine; Family Provider Family Medicine; PCP Family Medicine; Referring Provider Family Medicine; Visit Provider Internal Medicine
DX: F15.129 Other stimulant abuse with intoxication, unspecified (principal); F11.10 Opioid abuse, uncomplicated; K86.1 Other chronic pancreatitis; F10.20 Alcohol dependence, uncomplicated; J45.909 Unspecified asthma, uncomplicated; F90.9 Attention-deficit hyperactivity disorder, unspecified type; Z79.899 Other long term (current) drug therapy; F40.02 Agoraphobia without panic disorder; F17.210 Nicotine dependence, cigarettes, uncomplicated; N30.00 Acute cystitis without hematuria; F32.9 Major depressive disorder, single episode, unspecified; F41.9 Anxiety disorder, unspecified
CPT/HCPCS: 36415; 80053; 80307; 80320; 81001; 83690; 83735; 84100; 84703; 85025; 87086; 87088; 87186; 96360; 96361; 99218; 99284; J7030; G0378; G0480

== ENCOUNTER 2018-11-07 11:51 | Emergency (ER) | payer MEDICAID, SELFPAY ==
[2018-09-30 16:03] VITALS: BMI 17.1
[2018-11-07 11:51] VITALS: BP 98/64; PULSE 117; RESP 18; TEMP 36.7; O2SAT 97; BMI 18.3
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
--- NOTE | 2018-11-07 12:45 | ED.DEP ---
ED Disposition - Plan for ED Patient: Instructions: ED Allergic Reaction General Other Prescriptions: DiphenhydrAMINE [Benadryl] 25 mg PO BID PRN #7 cap Famotidine [Pepcid] 20 mg PO BID #28 tab Referrals: Reji Sood DO [Primary Care Provider] -
[2018-11-07] MEDS: Famotidine 20 MG Tablet PO (13:05)
[2018-11-07] MEDS: Triamcinolone Acetonide 40 MG/ML Vial IM (13:05)
[2018-11-07] MEDS: DiphenhydrAMINE 25 MG Capsule PO (13:05)
[2018-11-07 13:34] VITALS: BP 109/66; PULSE 65; RESP 14; O2SAT 99
== END 2018-11-07 13:37 | disposition home or self-care (01) ==
LOC: ED 12:55
PROVIDERS: Emergency Provider Emergency Medicine; Family Provider Family Medicine; PCP Family Medicine
DX: L50.0 Allergic urticaria (principal); K86.1 Other chronic pancreatitis; G89.29 Other chronic pain; R10.9 Unspecified abdominal pain
CPT/HCPCS: 96372; 99283